=== PATIENT | female | born 1995 | race Caucasian/White ===

== ENCOUNTER 2017-09-18 12:28 | Emergency (ER) | payer OTHER ==
--- NOTE | 2017-09-18 13:54 | RAD REPORT ---
EXAM DESCRIPTION: RAD -Hand Left 3 View - 09/18/2017 1:46 pm CLINICAL HISTORY: Left hand pain status post injury FINDINGS: No fracture or dislocation is seen.
--- NOTE | 2017-09-18 14:05 | ER ---
Nurse's Notes [facility] Name: Tara Anderson Age: 22 yrs Sex: Female : 1995 Arrival Date: 09/18/2017 Time: 12:31 Bed 23 Private MD: Diagnosis: Contusion of left index finger without damage to nail Presentation: 09/18 13:21 Presenting complaint: Patient states: pt was cleaning an upper cabinet and reach back tl3 into a ceiling fan, injuring her left hand, primarily the index finger. C/O pain and numbness to entire hand, cap refill less than 2 seconds. Transition of care: patient was not received from another setting of care. Onset of symptoms was September 18, 2017. Care prior to arrival: Medication(s) given: Tylenol, 325 mg. 13:21 Method Of Arrival: Ambulatory tl3 13:21 Acuity: DEANDRE 3 tl3 Triage Assessment: 13:25 General: Appears in no apparent distress. comfortable, slender, well groomed, well tl3 developed, well nourished, Behavior is calm, cooperative, appropriate for age. Pain: Complains of pain in left hand, index finger. EENT: No signs and/or symptoms were reported regarding the EENT system. Neuro: Level of Consciousness is awake, alert, obeys commands, Oriented to person, place, time, situation, Appropriate for age. Cardiovascular: Heart tones S1 S2 present Capillary refill < 3 seconds in bilateral fingers. Respiratory: Airway is patent Trachea midline Respiratory effort is even, unlabored, Breath sounds are clear bilaterally. GI: No signs and/or symptoms were reported involving the gastrointestinal system. : No signs and/or symptoms were reported regarding the genitourinary system. Derm: No signs and/or symptoms reported regarding the dermatologic system. Musculoskeletal: Reports numbness in left hand. Injury Description: Bruise sustained to left index finger. 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 - Social history:: Smoking status: Patient/guardian denies using tobacco, never smoked. Screenin:33 Abuse screen: Denies threats or abuse. Nutritional screening: No deficits noted. tl3 Tuberculosis screening: No symptoms or risk factors identified. Fall Risk None identified. Assessment: 13:29 Reassessment: No changes from previously documented assessment. Patient is alert, tl3 oriented x 3, equal unlabored respirations, skin warm/dry/pink. Alvaro Butler at bedside for assessment. 13:39 Reassessment: xray at bedside. tl3 14:00 Reassessment: Patient appears in no apparent distress at this time. No changes from tl3 previously documented assessment. Patient and/or family updated on plan of care and expected duration. Pain level reassessed. Patient is alert, oriented x 3, equal unlabored respirations, skin warm/dry/pink. Vital Signs: 13:25 BP 110 / 77; Pulse 68; Resp 18; Pulse Ox 100% ; Weight 54.88 kg; Height 5 ft. 2 in. tl3 (157.48 cm); 14:26 BP 112 / 78; Pulse 64; Resp 16; Pulse Ox 100% on R/A; tl3 13:25 Body Mass Index 22.13 (54.88 kg, 157.48 cm) tl3 ED Course: 12:31 Patient arrived in ED. mr 13:19 Aamir Butler PA is PHCP. cp 13:19 Aamir Oliver MD is Attending Physician. cp 13:21 Claire Fam, YULIA is Primary Nurse. tl3 13:23 Triage completed. tl3 13:25 Arm band placed on right wrist. tl3 13:43 X-ray completed. Portable x-ray completed in exam room. Patient tolerated procedure sw well. 13:44 XRAY Hand LEFT 3 View In Process Unspecified. EDMS 14:00 No apparent distress. tl3 14:10 No provider procedures requiring assistance completed. Patient did not have IV access tl3 during this emergency room visit. finger splint placed on left index finger, finger wrapped in gauze, aluminum splint placed and wrapped with 2in ion bandage. 14:33 Patient has correct armband on for positive identification. Bed in low position. Adult tl3 w/ patient. Administered Medications: 13:56 Drug: Ibuprofen 600 mg Route: PO; tl3 14:33 Follow up: Response: No adverse reaction; Pain is decreased tl3 Outcome: 14:05 Discharge ordered by . cp 14:32 Patient left the ED. tl3 14:34 Discharged to home ambulatory. tl3 14:34 Condition: good 14:34 Discharge instructions given to patient, Instructed on discharge instructions, follow up and referral plans. medication usage, Demonstrated understanding of instructions, follow-up care, medications, splint care, Prescriptions given X 1. Signatures: Dispatcher [employer] Hillary Minor mr Thomas, Aamir Zaldivar, Claire Jones cp, RN RN tl3
--- NOTE | 2017-09-18 14:05 | EDPHYS ---
Physician Documentation [facility] Name: Tara Anderson Age: 22 yrs Sex: Female : 1995 Arrival Date: 09/18/2017 Time: 12:31 Bed 23 Private MD: RIANA Physician Aamir Oliver HPI: 09/18 13:30 This 22 yrs old Female presents to ER via Ambulatory with complaints of Hand cp Injury. 13:30 The patient or guardian reports a contusion, injury. The complaints affect the left cp index finger. 13:30 Context: The problem was sustained at home, resulted from direct blow by ceiling fan. cp 13:30 Onset: The symptoms/episode began/occurred today. Associated signs and symptoms: cp Pertinent negatives: cyanosis distally, decreased sensation distally. 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 - Social history:: Smoking status: Patient/guardian denies using tobacco, never smoked. ROS: 13:38 Constitutional: Negative for body aches, chills, fever. cp 13:38 Eyes: Negative for injury, pain, redness, and discharge. cp 13:38 ENT: Negative for drainage from ear(s), ear pain, sore throat, difficulty swallowing, difficulty handling secretions. 13:38 Respiratory: Negative for cough, shortness of breath, wheezing. 13:38 Abdomen/GI: Negative for abdominal pain, nausea, vomiting, and diarrhea. 13:38 MS/extremity: Positive for contusion, ecchymosis, swelling, tenderness, of the left index finger. 13:38 Skin: Negative for cellulitis, rash. 13:38 Neuro: Positive for tingling, Negative for numbness. 13:38 All other systems are negative. Exam: 13:42 Constitutional: The patient appears in no acute distress, alert, awake, well developed, cp well nourished. 13:42 Head/Face: Normocephalic, atraumatic. cp 13:42 Eyes: Periorbital structures: appear normal, Conjunctiva: normal, no exudate, no injection, Lids and lashes: appear normal, bilaterally. 13:42 ENT: External ear(s): are unremarkable, Nose: is normal, Mouth: is normal, Posterior pharynx: is normal, airway is patent. 13:42 Chest/axilla: Inspection: normal. 13:42 Cardiovascular: Rate: normal, Rhythm: regular. 13:42 Respiratory: the patient does not display signs of respiratory distress, Respirations: normal, no use of accessory muscles, no retractions, no splinting, no tachypnea. 13:42 Musculoskeletal/extremity: Extremities: grossly normal except: noted in the middle and proximal phalanx left index finger: ecchymosis, swelling, tenderness, There is no evidence of decreased ROM, Perfusion: the extremity is normally perfused throughout, decreased sensation. 13:42 Skin: cellulitis, is not appreciated, no rash present. Vital Signs: 13:25 BP 110 / 77; Pulse 68; Resp 18; Pulse Ox 100% ; Weight 54.88 kg; Height 5 ft. 2 in. tl3 (157.48 cm); 14:26 BP 112 / 78; Pulse 64; Resp 16; Pulse Ox 100% on R/A; tl3 13:25 Body Mass Index 22.13 (54.88 kg, 157.48 cm) tl3 MDM: 13:19 Patient medically screened. 14:04 Data reviewed: vital signs, nurses notes, radiologic studies, plain films. 09/18 13:27 Order name: XRAY Hand LEFT 3 View; Complete Time: 13:57 09/18 13:57 Interpretation: Report reviewed. 09/18 14:00 Order name: Finger Splint; Complete Time: 14:01 cp Administered Medications: 13:56 Drug: Ibuprofen 600 mg Route: PO; tl3 14:33 Follow up: Response: No adverse reaction; Pain is decreased tl3 Disposition: 09/19 07:30 Co-signature as Attending Physician, Aamir Oliver MD I agree with the assessment and rosemary plan of care. Disposition: 09/18/17 14:05 Discharged to Home. Impression: Contusion of left index finger without damage to nail. - Condition is Stable. - Discharge Instructions: Contusion. - Prescriptions for Ibuprofen 600 mg Oral Tablet - take 1 tablet by ORAL route every 6 hours As needed take with food; 30 tablet. - Medication Reconciliation Form, Thank You Letter, Antibiotic Education, Prescription Opioid Use, Work release form form. - Follow up: Private Physician; When: 5 - 6 days; Reason: Recheck today's complaints. - Problem is new. - Symptoms have improved. Signatures: Dispatcher [employer] Aamir Ronquillo, Aamir Alcantara MD, cha, PA PA cp Lowrey, Tammy, RN RN tl3
[2017-09-18] MEDS ORDERED: IBUPROFEN 400 MG TAB ONE (14:13)
[2017-09-18] MEDS ORDERED: IBUPROFEN 200 MG TAB PO ONE (14:14)
== END 2017-09-18 14:32 | disposition home or self-care (01) ==
LOC: ER 12:28
DX: S60.022A Contusion of left index finger without damage to nail, initial encounter (principal); W22.8XXA Striking against or struck by other objects, initial encounter; Y93.9 Activity, unspecified; Y92.009 Unspecified place in unspecified non-institutional (private) residence as the place of occurrence of the external cause; Z88.8 Allergy status to other drugs, medicaments and biological substances
CPT/HCPCS: 99284

== ENCOUNTER 2018-02-12 20:08 | Emergency (ER) | payer BC, OTHER ==
[2018-02-12] MEDS ORDERED: NA CHLORIDE 0.9% 1,000 ML ONE (20:45)
[2018-02-12] MEDS ORDERED: MORPHINE 4 MG/ML SYR ONE (20:45)
[2018-02-12] MEDS ORDERED: ONDANSETRON 4 MG/2 ML VIAL ONE (20:45)
[2018-02-12 21:07] LABS: Absolute Lymphocytes (CBC) 2.7 K/uL (0.7-4.9); Absolute Monocytes 0.5 K/uL (0.1-1.3); Absolute Neutrophil 4.2 K/uL (1.8-8.0); Basophils % 0.4 % (0-1.3); Eosinophils % 1.5 % (0-4.4); Hematocrit 34.9 % (36.0-45.0); Lymphocytes % 36.2 % (15.3-44.8); MCH 28.1 pg (27.0-35.0); MCV 81.1 fL (80-100); MPV 9.4 fL (7.6-11.3); Monocytes % 6.1 % (3.3-12.3); RBC Red Blood Cell Count 4.31 M/uL (3.86-4.86)
[2018-02-12 21:27] LABS: ALT/SGPT 28 U/L (12-78); AST/SGOT 40 U/L (15-37); Albumin 3.8 g/dL (3.4-5.0); Alkaline Phosphatase 54 U/L (45-117); Amylase Level 47 U/L (25-115); BUN Blood Urea Nitrogen 8 mg/dL (7-18); Bicarbonate 24 mmol/L (21-32); Bilirubin Direct < 0.1 mg/dL (0-0.2); Bilirubin Total 0.3 mg/dL (0.2-1.0); Glucose Level 96 mg/dL (74-106); Lipase 95 U/L (73-393); Potassium 5.3 mmol/L (3.5-5.1); Protein, Total 7.4 g/dL (6.4-8.2); Sodium Level 140 mmol/L (136-145)
[2018-02-13 00:08] LABS: Urine Blood NEGATIVE (NEG); Urine Glucose NEGATIVE (NEG); Urine Protein NEGATIVE (NEG)
[2018-02-13 00:08] LABS: Urine Bacteria <20 /HPF (<20); Urine Culture Reflex Order NOT NEEDED; Urine RBC <5 /HPF (NONE SEEN)
--- NOTE | 2018-02-13 01:05 | EDPHYS ---
Physician Documentation [facility] Name: Tara Anderson Age: 22 yrs Sex: Female : 1995 Arrival Date: 02/12/2018 Time: 20:12 Bed 6 Private MD: ED Physician Domingo Marie HPI: 02/12 20:30 This 22 yrs old Female presents to ER via Wheelchair with complaints of cp Abdominal Pain, Nausea. 20:30 The patient presents with abdominal pain in the lower abdomen. Onset: The cp symptoms/episode began/occurred suddenly, 1 hour(s) ago. The symptoms do not radiate. Associated signs and symptoms: Pertinent negatives: chest pain, constipation, diarrhea, dysuria, fever, vomiting. The symptoms are described as constant. Severity of pain: in the emergency department the pain is unchanged despite home interventions. 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 - Social history:: Smoking status: Patient/guardian denies using tobacco. - Ebola Screening: : Patient negative for fever greater than or equal to 101.5 degrees Fahrenheit, and additional compatible Ebola Virus Disease symptoms Patient denies exposure to infectious person Patient denies travel to an Ebola-affected area in the 21 days before illness onset No symptoms or risks identified at this time. ROS: 20:35 Constitutional: Negative for body aches, chills, fever, poor PO intake. cp 20:35 Eyes: Negative for injury, pain, redness, and discharge. cp 20:35 ENT: Negative for drainage from ear(s), ear pain, sore throat, difficulty swallowing, difficulty handling secretions. 20:35 Cardiovascular: Negative for chest pain, edema, palpitations. 20:35 Respiratory: Negative for cough, shortness of breath, wheezing. 20:35 Abdomen/GI: Positive for abdominal pain, Negative for vomiting, diarrhea, constipation, anorexia, black/tarry stool, rectal bleeding. 20:35 Back: Negative for pain at rest, pain with movement, radiated pain. 20:35 : Negative for urinary symptoms. 20:35 Skin: Negative for cellulitis, rash. 20:35 Neuro: Negative for altered mental status, headache, weakness. 20:35 All other systems are negative. Exam: 20:40 Constitutional: The patient appears in no acute distress, alert, awake, non-toxic, well cp developed, well nourished. 20:40 Head/Face: Normocephalic, atraumatic. cp 20:40 Eyes: Periorbital structures: appear normal, Conjunctiva: normal, no exudate, no injection, Sclera: no appreciated abnormality, Lids and lashes: appear normal, bilaterally. 20:40 ENT: External ear(s): are unremarkable, Nose: is normal, Mouth: Lips: moist, Oral mucosa: moist, Posterior pharynx: is normal, airway is patent, no erythema, no exudate. 20:40 Neck: ROM/movement: is normal, is supple, without pain, no range of motions limitations, no nuchal rigidity. 20:40 Chest/axilla: Inspection: normal, Palpation: is normal, no crepitus, no tenderness. 20:40 Cardiovascular: Rate: normal, Rhythm: regular. 20:40 Respiratory: the patient does not display signs of respiratory distress, Respirations: normal, no use of accessory muscles, no retractions, no splinting, no tachypnea, labored breathing, is not present, Breath sounds: are clear throughout, no decreased breath sounds, no stridor, no wheezing. 20:40 Abdomen/GI: Inspection: abdomen appears normal, Bowel sounds: active, all quadrants, Palpation: soft, in all quadrants, severe abdominal tenderness, in the right lower quadrant and left lower quadrant, rebound tenderness, is not appreciated, voluntary guarding, is elicited in the right lower quadrant and left lower quadrant, involuntary guarding, is not appreciated. 20:40 Back: pain, is absent, ROM is normal. 20:40 Skin: cellulitis, is not appreciated, no rash present. 20:40 Neuro: Orientation: to person, place \T\ time. Mentation: lucid, able to follow commands, Cerebellar function: is grossly normal, Motor: moves all fours, strength is normal, Sensation: no obvious gross deficits. Vital Signs: 20:23 BP 130 / 74; Pulse 99; Resp 20; Temp 98.5; Pulse Ox 100% on R/A; Weight 54.43 kg (R); sr5 Height 5 ft. 1 in. (154.94 cm); Pain 10/10; 21:20 BP 96 / 59; Pulse 66; Resp 16 S; Pulse Ox 100% on R/A; jd3 22:00 BP 104 / 67; Pulse 54; Resp 14; Pulse Ox 100% ; bp 23:10 BP 94 / 58; Pulse 52; Resp 16 S; Pulse Ox 98% on R/A; jd3 23:50 BP 94 / 57; Pulse 53; Resp 14; Pulse Ox 98% ; bp 02/13 00:46 BP 80 / 43; Pulse 46; Resp 14; Pulse Ox 100% ; bp 00:58 BP 92 / 51; Pulse 47; Resp 14; Pulse Ox 100% ; bp 02/12 20:23 Body Mass Index 22.67 (54.43 kg, 154.94 cm) sr5 MDM: 02/12 20:18 Patient medically screened. cp 02/13 01:02 Data reviewed: vital signs, nurses notes, lab test result(s), radiologic studies, CT cp scan, ultrasound. 01:02 Counseling: I had a detailed discussion with the patient and/or guardian regarding: the cp historical points, exam findings, and any diagnostic results supporting the discharge/admit diagnosis, lab results, radiology results, the need for outpatient follow up, an OB/Gyne specialist, to return to the emergency department if symptoms worsen or persist or if there are any questions or concerns that arise at home. Response to treatment: the patient's symptoms have markedly improved after treatment. Special discussion: Based on the patient's Hx, exam, and Dx evaluation, there is no indication for emergent surgery or inpatient Tx. It is understood by the patient/guardian that if the Sx's persist or worsen they need to return immediately for re-evaluation. 02/12 20: Order name: Amylase, Serum; Complete Time: 22:01 cp 02/12 20: Order name: Basic Metabolic Panel; Complete Time: 22: cp 02/12 22: Interpretation: Normal except: K 5.3; CL 109; GFR 89. cp 02/12 20: Order name: CBC with Diff; Complete Time: 21:33 cp 02/12 21:33 Interpretation: Normal except: HCT 34.9; RDW 15.5. cp 02/12 20:27 Order name: Creatinine for Radiology; Complete Time: 21:33 cp 02/12 20:27 Order name: Hepatic Function; Complete Time: 22:01 cp 02/12 22:01 Interpretation: Normal except: AST 40; GLOB 3.6. cp 02/12 20:27 Order name: Lipase; Complete Time: 22:01 cp 02/12 20:27 Order name: Urine Microscopic Only; Complete Time: 00:24 cp 02/12 20:55 Order name: Test, Serum; Complete Time: 22:01 02/12 22:02 Interpretation: Reviewed. 02/12 21:06 Order name: CT Abd/Pelvis - W/Contrast 02/12 22:04 Order name: US Transvaginal Study (Probe) 02/12 22:18 Order name: Urine Dipstick--Ancillary (enter results); Complete Time: 00:24 mt 02/12 22:18 Order name: Urine --Ancillary (enter results); Complete Time: 00:24 mt 02/12 23:51 Order name: Potassium; Complete Time: 00:24 02/13 00:24 Interpretation: Within normal limits: K 3.7. 02/12 20:27 Order name: Urine Test (obtain specimen); Complete Time: 23:15 cp 02/12 20:27 Order name: IV Saline Lock; Complete Time: 20:51 cp 02/12 20:27 Order name: Labs collected and sent; Complete Time: 20:51 02/12 20:27 Order name: Urine Dipstick-Ancillary (obtain specimen); Complete Time: 23:15 02/13 00:50 Order name: Vital Signs: rechech to include blood pressure; Complete Time: 00:59 cp Administered Medications: 02/12 20:50 Drug: morphine 2 mg Route: IVP; Site: left antecubital; bp 21:43 Follow up: Response: Pain is decreased bp 20:51 Drug: NS 0.9% 1000 ml Route: IV; Rate: 1 bolus; Site: left antecubital; bp 22:00 Follow up: IV Status: Completed infusion; IV Intake: 1000ml bp 20:51 Drug: Zofran 4 mg Route: IVP; Site: left antecubital; bp 21:43 Follow up: Response: No adverse reaction; Nausea is decreased bp 22:30 Drug: NS 0.9% 1000 ml Route: IV; Rate: 125 ml/hr; Site: left antecubital; bp 02/13 01:14 Follow up: IV Status: Completed infusion; IV Intake: 375ml bp Disposition: 03:01 Co-signature as Attending Physician, Domingo Marie MD I agree with the assessment and tw4 plan of care. 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 Attestation: The patient's history, exam findings, diagnostics, and a summary of any interventions or procedures was reviewed in detail with Aamir MANRIQUEZ. Disposition: 02/13/18 01:04 Discharged to Home. Impression: Unspecified ovarian cysts. - Condition is Stable. - Discharge Instructions: Ovarian Cyst. - Prescriptions for Tylenol- Codeine #3 300-30 mg Oral Tablet - take 2 tablets by ORAL route every 6 hours As needed; 20 tablet. - Medication Reconciliation Form, Thank You Letter, Antibiotic Education, Prescription Opioid Use form. 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 - Problem is new. - Symptoms have improved. Signatures: Dispatcher [employer] EDMS Aamir Butler PA PA cp Resecker, Sam RN RN sr5 Kai Lind RN RN Domingo Miles MD MD tw4 Corrections: (The following items were deleted from the chart) 01:15 01:04 02/13/2018 01:04 Discharged to Home. Impression: Unspecified ovarian cysts. bp Condition is Stable. Forms are Medication Reconciliation Form, Thank You Letter, Antibiotic Education, Prescription Opioid Use. 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 Problem is new. Symptoms have improved. cp
--- NOTE | 2018-02-13 01:05 | ER ---
Nurse's Notes [facility] Name: Tara Anderson Age: 22 yrs Sex: Female : 1995 Arrival Date: 02/12/2018 Time: 20:12 Bed 6 Private MD: Diagnosis: Unspecified ovarian cysts Presentation: 02/12 20:21 Presenting complaint: Patient states: sudden severe lower midline abd pain, nausea. LMP sr5 2 weeks ago "spotty". Pt tearful/guarding. Transition of care: patient was not received from another setting of care. Onset of symptoms was February 12, 2018. Risk Assessment: Do you want to hurt yourself or someone else? Patient reports no desire to harm self or others. Initial Sepsis Screen: Does the patient meet any 2 criteria? No. Patient's initial sepsis screen is negative. Does the patient have a suspected source of infection? No. Patient's initial sepsis screen is negative. Care prior to arrival: None. 20:21 Method Of Arrival: Wheelchair sr5 20:21 Acuity: DEANDRE 3 sr5 Triage Assessment: 20:23 General: Appears uncomfortable, Behavior is crying. Pain: Complains of pain in sr5 suprapubic area, right lower quadrant and left lower quadrant Pain currently is 10 out of 10 on a pain scale. Quality of pain is described as crampy, pressure, sharp, Pain began suddenly. Neuro: No deficits noted. Cardiovascular: No deficits noted. Respiratory: No deficits noted. GI: Abdomen is flat, non-distended. :. 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 - Social history:: Smoking status: Patient/guardian denies using tobacco. - Ebola Screening: : Patient negative for fever greater than or equal to 101.5 degrees Fahrenheit, and additional compatible Ebola Virus Disease symptoms Patient denies exposure to infectious person Patient denies travel to an Ebola-affected area in the 21 days before illness onset No symptoms or risks identified at this time. Screenin:49 Abuse screen: Denies threats or abuse. Denies injuries from another. Nutritional bp screening: No deficits noted. Tuberculosis screening: No symptoms or risk factors identified. Fall Risk None identified. Assessment: 20:51 General: Appears distressed, uncomfortable, slender, Behavior is cooperative, agitated, bp anxious, crying. Pain: Complains of pain in abdomen. Neuro: Level of Consciousness is awake, alert, obeys commands, Oriented to person, place, time, situation, Appropriate for age. Cardiovascular: No deficits noted. Respiratory: Airway is patent Respiratory effort is even, unlabored, Respiratory pattern is regular, symmetrical. GI: Bowel sounds present X 4 quads. Abdomen is tender to palpation X 4 quads. : Reports vaginal bleeding that is spotty. EENT: No deficits noted. Derm: No deficits noted. Musculoskeletal: Circulation, motion, and sensation intact. Range of motion: intact in all extremities. 22:00 Reassessment: PO CONTRAST COMPLETED, CT NOTIFIED. U/S PENDING. PT EXPRESSES RELIEF OF bp S/S. 22:16 Reassessment: PT ASHLEY TO U/S WITH STATISTICS TUTOR. bp 23:49 Reassessment: PT RESTING QUIETLY, VS STABLE, RAD RESULTS PENDING. bp 02/13 00:30 Reassessment: PT RESTING QUIETLY, RESULTS PENDING, VS STABLE. bp 01:12 Reassessment: PT D/C HOME VIA W/C WITH FAMILY, DX WITH OVARIAN CYST, TO F/U WITH OB-LANDSCAPER HELPER.bp Vital Signs: 02/12 20:23 BP 130 / 74; Pulse 99; Resp 20; Temp 98.5; Pulse Ox 100% on R/A; Weight 54.43 kg (R); sr5 Height 5 ft. 1 in. (154.94 cm); Pain 10/10; 21:20 BP 96 / 59; Pulse 66; Resp 16 S; Pulse Ox 100% on R/A; jd3 22:00 BP 104 / 67; Pulse 54; Resp 14; Pulse Ox 100% ; bp 23:10 BP 94 / 58; Pulse 52; Resp 16 S; Pulse Ox 98% on R/A; jd3 23:50 BP 94 / 57; Pulse 53; Resp 14; Pulse Ox 98% ; bp 02/13 00:46 BP 80 / 43; Pulse 46; Resp 14; Pulse Ox 100% ; bp 00:58 BP 92 / 51; Pulse 47; Resp 14; Pulse Ox 100% ; bp 02/12 20:23 Body Mass Index 22.67 (54.43 kg, 154.94 cm) 5 ED Course: 02/12 20:12 Patient arrived in ED. al2 20:18 Aamir Butler PA is PHCP. cp 20:18 Domingo Marie MD is Attending Physician. cp 20:22 Triage completed. sr5 20:23 Kai Lind, YULIA is Primary Nurse. bp 20:23 Arm band placed on. sr5 20:48 Inserted saline lock: 20 gauge in left antecubital area, using aseptic technique. Blood bp collected. 20:49 Patient has correct armband on for positive identification. Placed in gown. Bed in low bp position. Call light in reach. Side rails up X2. Adult w/ patient. 21:29 Oral contrast given. jg6 22:06 Oral contrast reported to be complete. jg6 22:53 US Transvaginal Study (Probe) In Process Unspecified. EDMS 02/13 00:11 CT Abd/Pelvis - W/Contrast In Process Unspecified. EDMS 00:44 CT completed. Patient tolerated procedure well. Patient moved to CT via wheelchair. Patient moved back from CT. 01:13 No provider procedures requiring assistance completed. IV discontinued, intact, bp bleeding controlled, No redness/swelling at site. Pressure dressing applied. Administered Medications: 02/12 20:50 Drug: morphine 2 mg Route: IVP; Site: left antecubital; bp 21:43 Follow up: Response: Pain is decreased bp 20:51 Drug: NS 0.9% 1000 ml Route: IV; Rate: 1 bolus; Site: left antecubital; bp 22:00 Follow up: IV Status: Completed infusion; IV Intake: 1000ml bp 20:51 Drug: Zofran 4 mg Route: IVP; Site: left antecubital; bp 21:43 Follow up: Response: No adverse reaction; Nausea is decreased bp 22:30 Drug: NS 0.9% 1000 ml Route: IV; Rate: 125 ml/hr; Site: left antecubital; bp 02/13 01:14 Follow up: IV Status: Completed infusion; IV Intake: 375ml bp Intake: 02/12 22:00 IV: 1000ml; Total: 1000ml. bp 02/13 01:14 IV: 375ml; Total: 1375ml. bp Outcome: 01:04 Discharge ordered by MD. cp 01:13 Discharged to home via wheelchair, with family. bp 01:13 Condition: stable 01:13 Discharge instructions given to patient, Instructed on discharge instructions, follow up and referral plans. medication usage, Demonstrated understanding of instructions, follow-up care, medications, Prescriptions given X 1. 01:15 Patient left the ED. bp Signatures: Dispatcher [employer] EDMS Geoffrey Heck Corey, DECLAN PA cp Ahmet Julien RN RN sr5 Valdemar Brooks RN RN jd3 Kai Lind RN RN Abeba Miller Jessica jg6 Corrections: (The following items were deleted from the chart) 02/12 20:22 20:21 Acuity: DEANDRE 2 sr5 sr5
--- NOTE | 2018-02-13 08:00 | RAD REPORT ---
EXAM DESCRIPTION: US - Transvaginal Study Probe - 02/12/2018 10:53 pm CLINICAL HISTORY: lower abdomen pain COMPARISON: Abdomen Pelvis W Contrast dated 02/12/2018<Comparisons> FINDINGS: The uterus measures 8 x 5 x 6cm. A fibroid is not seen. The endometrium measures approxima tely 18 millimeters. A 3.9 x 2.4 x 4 centimeter cystic mass is present within the right ovary containing a septation. Bloo d flow is seen within the right ovarian parenchyma. The left ovary was not visualized. No significant free fluid is noted IMPRESSION: 3.9 centimeter complex right ovarian cyst likely is benign. Follow up ultrasound in a co uple months is recommended to assess stability/resolution
--- NOTE | 2018-02-13 08:36 | RAD REPORT ---
EXAM DESCRIPTION: CT - Abdomen Pelvis W Contrast - 02/13/2018 4:36 am CLINICAL HISTORY: Abdominal pain/lower abdominal pain with nausea COMPARISON: None TECHNIQUE: Computed axial tomography of the abdomen and pelvis was obtained. 100 cc Isovue-300 is ad ministered intravenously. Oral contrast was given. A preliminary report was generated by [facility] and reviewed prior to this dictation All CT scans are performed using dose optimization technique as appropriate and may include automated exposure control or mA/KV adjustment according to patient size. FINDINGS: The liver, spleen, pancreas, adrenals and kidneys appear unremarkable. The appendix is normal caliber. There is no evidence of diverticulitis A 4 centimeter complex cystic mass is present within right adnexae. Significant free fluid is not not ed IMPRESSION: 4 centimeter complex cystic mass within the right adnexal likely representing complex ovarian cyst. F ollowup ultrasound in a couple of months is recommended to assess stability/resolution
== END 2018-02-13 01:15 | disposition home or self-care (01) ==
LOC: ER 20:08
DX: N83.209 Unspecified ovarian cyst, unspecified side (principal); F41.9 Anxiety disorder, unspecified; Z88.8 Allergy status to other drugs, medicaments and biological substances
CPT/HCPCS: 36415; 74177; 76830; 80048; 80076; 81003; 81015; 81025; 82150; 83690; 84132; 84703; 85025; 96361; 96374; 96375; 99284; J2405; J7030; Q9967

== ENCOUNTER 2018-11-24 07:06 | Emergency (ER) | payer BC ==
--- NOTE | 2018-11-24 08:06 | ER ---
Nurse's Notes [facility] Name: Tara Anderson Age: 23 yrs Sex: Female : 1995 Arrival Date: 11/24/2018 Time: 07:22 Bed 17 Private MD: Diagnosis: Follicular disorder, unspecified Presentation: 11/24 07:34 Presenting complaint: Patient states: rash under right arms X 3 days, looks like a iw "popped pimple" but there was never a pimple there, tender to touch, rash was worse this morning. Transition of care: patient was not received from another setting of care. Onset of symptoms was November 21, 2018. Risk Assessment: Do you want to hurt yourself or someone else? Patient reports no desire to harm self or others. Initial Sepsis Screen: Does the patient meet any 2 criteria? No. Patient's initial sepsis screen is negative. Does the patient have a suspected source of infection? No. Patient's initial sepsis screen is negative. Care prior to arrival: None. 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 - Social history:: Smoking status: Patient uses tobacco products, smokes one-half pack cigarettes per day. - Ebola Screening: : Patient negative for fever greater than or equal to 101.5 degrees Fahrenheit, and additional compatible Ebola Virus Disease symptoms Patient denies exposure to infectious person Patient denies travel to an Ebola-affected area in the 21 days before illness onset No symptoms or risks identified at this time. Screenin:47 Abuse screen: Denies threats or abuse. Denies injuries from another. Nutritional sv screening: No deficits noted. Tuberculosis screening: No symptoms or risk factors identified. Fall Risk None identified. Assessment: 08:16 General: Appears in no apparent distress. uncomfortable, well developed, Behavior is sv calm, cooperative, appropriate for age. Pain: Complains of pain in right axilla Pain currently is 7 out of 10 on a pain scale. Neuro: Level of Consciousness is awake, alert, obeys commands, Oriented to person, place, time, situation, Moves all extremities. Full function Gait is steady. Respiratory: Respiratory effort is even, unlabored, Respiratory pattern is regular, symmetrical. Derm: Reports pain rash in armpit. Vital Signs: 07:36 BP 113 / 72; Pulse 64; Resp 16; Temp 97.9(TE); Pulse Ox 100% on R/A; Weight 58.06 kg; iw Height 5 ft. 2 in. (157.48 cm); Pain 7/10; 07:36 Body Mass Index 23.41 (58.06 kg, 157.48 cm) ED Course: 07:22 Patient arrived in ED. tw3 07:32 Carter Torres PA is PHCP. [facility] 07:32 Aamir Oliver MD is Attending Physician. [facility] 07:33 Sheela Payne, RN is Primary Nurse. iw 07:36 Triage completed. iw 07:37 Arm band placed on. iw 07:38 Sumaya Olmos RN is Primary Nurse. sv 07:47 Patient has correct armband on for positive identification. Bed in low position. Call sv light in reach. Door closed. Head of bed elevated. 07:57 Nurse Practitioner and/or Physician Broom Machine Operator to see patient. sv 08:15 No provider procedures requiring assistance completed. Patient did not have IV access sv during this emergency room visit. Administered Medications: No medications were administered Outcome: 08:06 Discharge ordered by . [facility] 08:16 Discharged to home ambulatory. sv 08:16 Condition: stable 08:16 Discharge instructions given to patient, Instructed on discharge instructions, follow up and referral plans. medication usage, wound care, Demonstrated understanding of instructions, follow-up care, medications, wound care, Prescriptions given X 1. 08:17 Patient left the ED. sv Signatures: Sumaya Olmos RN RN Carter Torres PA PA jmm Williams, Irene, RN RN Rachael Nelson tw3
--- NOTE | 2018-11-24 08:06 | EDPHYS ---
Physician Documentation [facility] Name: Tara Anderson Age: 23 yrs Sex: Female : 1995 Arrival Date: 11/24/2018 Time: 07:22 Bed 17 Private MD: ED Physician Aamir Oliver HPI: 11/24 08:00 This 23 yrs old Female presents to ER via Ambulatory with complaints of Rash. jmm 08:00 The patient's rash thought to be caused by an unknown cause. Onset: The jmm symptoms/episode began/occurred acutely, 1 day(s) ago. Associated signs and symptoms: Pertinent positives: Pain Pertinent negatives: fever, itching. This is a 23 year old female with a history of anxiety that presents to the ED with complaints of right axillary rash beginning yesterday. patient denies draining. Denies itchiness. Denies fever. . 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 - Social history:: Smoking status: Patient uses tobacco products, smokes one-half pack cigarettes per day. - Ebola Screening: : Patient negative for fever greater than or equal to 101.5 degrees Fahrenheit, and additional compatible Ebola Virus Disease symptoms Patient denies exposure to infectious person Patient denies travel to an Ebola-affected area in the 21 days before illness onset No symptoms or risks identified at this time. ROS: 08:00 Constitutional: Negative for fever, chills, and weight loss, Cardiovascular: Negative jmm for chest pain, palpitations, and edema, Respiratory: Negative for shortness of breath, cough, wheezing, and pleuritic chest pain. 08:00 Skin: Positive for pustules, rash. 08:00 All other systems are negative. Exam: 08:00 Head/Face: atraumatic. Eyes: EOMI, no conjunctival erythema appreciated ENT: Moist jmm Mucus Membranes Neck: Trachea midline, Supple Chest/axilla: Normal chest wall appearance and motion. Cardiovascular: Regular rate and rhythm. No edema appreciated Respiratory: Normal respirations, no respiratory distress appreciated Abdomen/GI: Non distended, soft Back: Normal ROM 08:00 Constitutional: The patient appears in no acute distress, alert, awake. 08:00 Skin: pustules noted to the right axilla, TTP, no surrounding indurations. No purulent drainage is appreciated. . 08:00 Neuro: Orientation: is normal, Mentation: is normal, Memory: is normal. 08:00 Psych: Behavior/mood is pleasant, cooperative. Vital Signs: 07:36 BP 113 / 72; Pulse 64; Resp 16; Temp 97.9(TE); Pulse Ox 100% on R/A; Weight 58.06 kg; iw Height 5 ft. 2 in. (157.48 cm); Pain 7/10; 07:36 Body Mass Index 23.41 (58.06 kg, 157.48 cm) iw MDM: 07:32 Patient medically screened. [facility] 08:04 Data reviewed: vital signs, nurses notes. Counseling: I had a detailed discussion with filiberto the patient and/or guardian regarding: the historical points, exam findings, and any diagnostic results supporting the discharge/admit diagnosis, the need for outpatient follow up, to return to the emergency department if symptoms worsen or persist or if there are any questions or concerns that arise at home. ED course: Patient is alert and non toxic in appearance. Patient is advised to follow up with her pcp for reevaluation in 1 to 2 days. patient is otherwise given strict return precautions. patient understood and agrees with the plan of care. . Administered Medications: No medications were administered Disposition: 11/24/18 08:06 Discharged to Home. Impression: Follicular disorder, unspecified. - Condition is Stable. - Discharge Instructions: Folliculitis. - Prescriptions for Bactroban 2 % Topical Ointment - Apply to affected area 1 application by TOPICAL route every 12 hours; 30 gram. - Work release form, Medication Reconciliation Form, Thank You Letter, Antibiotic Education, Prescription Opioid Use form. - Follow up: Private Physician; When: 2 - 3 days; Reason: Recheck today's complaints, Continuance of care, Re-evaluation by your physician. Signatures: Sumaya Olmos RN RN sv Anderson, Corey, MD MD cha Mickail, Joel, PA PA jmm Williams, Irene, RN RN iw Corrections: (The following items were deleted from the chart) 08:17 08:06 11/24/2018 08:06 Discharged to Home. Impression: Follicular disorder, sv unspecified. Condition is Stable. Forms are Medication Reconciliation Form, Thank You Letter, Antibiotic Education, Prescription Opioid Use. Follow up: Private Physician; When: 2 - 3 days; Reason: Recheck today's complaints, Continuance of care, Re-evaluation by your physician. filiberto
== END 2018-11-24 08:17 | disposition home or self-care (01) ==
LOC: ER 07:06
DX: L73.9 Follicular disorder, unspecified (principal); Z88.1 Allergy status to other antibiotic agents
CPT/HCPCS: 99282

== ENCOUNTER 2018-12-19 21:10 | Emergency (ER) | payer BC ==
--- NOTE | 2018-12-19 21:36 | ER ---
Nurse's Notes [facility] Name: Tara Anderson Age: 23 yrs Sex: Female : 1995 Arrival Date: 12/19/2018 Time: 21:19 Bed 3 Private MD: Diagnosis: Staphylococcal infection, unspecified site Presentation: 12/19 21:25 Presenting complaint: Patient states: rashes on armpit started 3 weeks ago. its getting rr5 itchy and burn feeling. 21:25 Transition of care: patient was not received from another setting of care. Onset of rr5 symptoms was November 2018. Risk Assessment: Do you want to hurt yourself or someone else? Patient reports no desire to harm self or others. Initial Sepsis Screen: Does the patient meet any 2 criteria? No. Patient's initial sepsis screen is negative. Does the patient have a suspected source of infection? No. Patient's initial sepsis screen is negative. Care prior to arrival: None. 21:25 Method Of Arrival: Ambulatory rr5 21:25 Acuity: DEANDRE 4 rr5 Triage Assessment: 21:25 General: Appears in no apparent distress. comfortable, Behavior is calm, cooperative, rr5 appropriate for age. 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 - Social history:: Smoking status: Patient uses tobacco products, smokes one-half pack cigarettes per day, Patient/guardian denies using alcohol, street drugs. - Ebola Screening: : Patient negative for fever greater than or equal to 101.5 degrees Fahrenheit, and additional compatible Ebola Virus Disease symptoms Patient denies exposure to infectious person Patient denies travel to an Ebola-affected area in the 21 days before illness onset. Screenin:25 Abuse screen: Denies threats or abuse. Denies injuries from another. Nutritional rr5 screening: No deficits noted. Tuberculosis screening: No symptoms or risk factors identified. Fall Risk None identified. Total Harding Fall Scale indicates No Risk (0-24 pts). Assessment: 21:25 General: Appears in no apparent distress. comfortable, Behavior is calm, cooperative, rr5 appropriate for age. 21:25 Pain: Denies pain. Neuro: Level of Consciousness is awake, alert, obeys commands, rr5 Oriented to person, place, time, situation, Appropriate for age. Cardiovascular: Capillary refill < 3 seconds Patient's skin is warm and dry. Respiratory: Airway is patent Respiratory effort is even, unlabored, Respiratory pattern is regular, symmetrical. GI: No signs and/or symptoms were reported involving the gastrointestinal system. : No signs and/or symptoms were reported regarding the genitourinary system. EENT: No signs and/or symptoms were reported regarding the EENT system. Derm: Rash noted that is itchy, red, raised, vesicular, on right and left armpit. Musculoskeletal: Capillary refill < 3 seconds, Range of motion: intact in all extremities. Vital Signs: 21:25 BP 115 / 86; Pulse 71; Resp 17; Temp 98.7; Pulse Ox 98% ; Weight 54.43 kg; Height 5 ft. rr5 2 in. (157.48 cm); Pain 0/10; 21:25 Body Mass Index 21.95 (54.43 kg, 157.48 cm) rr5 ED Course: 21:19 Patient arrived in ED. aa1 21:20 Aamir Butler PA is PHCP. cp 21:20 Chris Taylor MD is Attending Physician. cp 21:25 Patient has correct armband on for positive identification. Bed in low position. rr5 21:26 Arm band placed on right wrist. rr5 21:29 Justin Layton RN is Primary Nurse. rr5 21:31 Triage completed. rr5 21:50 No provider procedures requiring assistance completed. Patient did not have IV access rr5 during this emergency room visit. Administered Medications: No medications were administered Outcome: 21:33 Discharge ordered by MD. cp 21:45 Discharged to home ambulatory. rr5 21:45 Condition: stable 21:45 Discharge instructions given to patient, Instructed on discharge instructions, follow up and referral plans. medication usage, Demonstrated understanding of instructions, follow-up care, medications, Prescriptions given X 2. 21:53 Patient left the ED. rr5 Signatures: Sally Simons RN RN aa1 Aamir Butler PA PA cp Layton, Justin, RN RN rr5
--- NOTE | 2018-12-19 21:37 | EDPHYS ---
Physician Documentation [facility] Name: Tara Anderson Age: 23 yrs Sex: Female : 1995 Arrival Date: 12/19/2018 Time: 21:19 Bed 3 Private MD: ED Physician Chris Taylor HPI: 12/19 21:31 This 23 yrs old Female presents to ER via Ambulatory with complaints of Rash. cp 21:31 The rash is located on the right arm axilla and left arm axilla. Onset: The cp symptoms/episode began/occurred 3 week(s) ago. 21:31 Associated signs and symptoms: Pertinent negatives: fever. 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 - Social history:: Smoking status: Patient uses tobacco products, smokes one-half pack cigarettes per day, Patient/guardian denies using alcohol, street drugs. - Ebola Screening: : Patient negative for fever greater than or equal to 101.5 degrees Fahrenheit, and additional compatible Ebola Virus Disease symptoms Patient denies exposure to infectious person Patient denies travel to an Ebola-affected area in the 21 days before illness onset. ROS: 21:32 Eyes: Negative for injury, pain, redness, and discharge. cp 21:32 Constitutional: Negative for body aches, chills, fever, poor PO intake. 21:32 Cardiovascular: Negative for chest pain. cp 21:32 Respiratory: Negative for cough, wheezing. cp 21:32 Abdomen/GI: Negative for abdominal pain. 21:32 Skin: Positive for rash, of the right arm axilla and left arm axilla. 21:32 All other systems are negative. Exam: 21:32 Head/Face: Normocephalic, atraumatic. cp 21:32 Constitutional: The patient appears in no acute distress, alert, awake, comfortable, non-toxic, well developed, well nourished. 21:32 Skin: rash can be described as erythematous, papular, on the right arm axilla and left cp arm axilla. Vital Signs: 21:25 BP 115 / 86; Pulse 71; Resp 17; Temp 98.7; Pulse Ox 98% ; Weight 54.43 kg; Height 5 ft. rr5 2 in. (157.48 cm); Pain 0/10; 21:25 Body Mass Index 21.95 (54.43 kg, 157.48 cm) rr5 MDM: 21:20 Patient medically screened. cp 21:33 Differential diagnosis: impetigo, allergic reaction, cellulitis. cp 21:33 Data reviewed: vital signs, nurses notes, and as a result, I will discharge patient. cp Counseling: I had a detailed discussion with the patient and/or guardian regarding: the historical points, exam findings, and any diagnostic results supporting the discharge/admit diagnosis, to return to the emergency department if symptoms worsen or persist or if there are any questions or concerns that arise at home. Administered Medications: No medications were administered Disposition: 12/20 02:11 Co-signature as Attending Physician, Chris Taylor MD. [email or web address] Disposition: 12/19/18 21:33 Discharged to Home. Impression: Staphylococcal infection, unspecified site. - Condition is Stable. - Discharge Instructions: Staphylococcal Infection. - Prescriptions for Bactroban 2 % Topical Ointment - Apply to affected area 1 application by TOPICAL route every 12 hours; 30 gram. Clindamycin HCl 300 mg Oral Capsule - take 1 capsule by ORAL route every 6 hours for 10 days; 40 capsule. - Medication Reconciliation Form, Thank You Letter, Antibiotic Education, Prescription Opioid Use form. - Follow up: Private Physician; When: 1 week; Reason: Worsening of condition. - Problem is new. - Symptoms are unchanged. Signatures: Chris Taylor MD MD pkAamir Salinas PA PA cp Roque, Raymond RN RN rr5 Corrections: (The following items were deleted from the chart) 12/19 21:53 21:33 12/19/2018 21:33 Discharged to Home. Impression: Staphylococcal infection, rr5 unspecified site. Condition is Stable. Forms are Medication Reconciliation Form, Thank You Letter, Antibiotic Education, Prescription Opioid Use. Follow up: Private Physician; When: 1 week; Reason: Worsening of condition. Problem is new. Symptoms are unchanged. cp
== END 2018-12-19 21:53 | disposition home or self-care (01) ==
LOC: ER 21:10
DX: R21 Rash and other nonspecific skin eruption (principal); B95.8 Unspecified staphylococcus as the cause of diseases classified elsewhere; F41.9 Anxiety disorder, unspecified; F17.210 Nicotine dependence, cigarettes, uncomplicated; Z88.8 Allergy status to other drugs, medicaments and biological substances
CPT/HCPCS: 99282

== ENCOUNTER 2021-06-26 18:40 | Emergency (ER) | payer SELFPAY ==
[2021-06-26 21:41] LABS: SARS-COV-2 RT PCR POSITIVE (NEGATIVE)
--- NOTE | 2021-06-26 22:03 | EDPHYS ---
Physician Documentation [facility] Name: Tara Anderson Age: 26 yrs Sex: Female : 1995 Arrival Date: 06/26/2021 Time: 18:44 Bed Waiting Private MD: ED Physician Aamir Oliver HPI: 06/26 22:00 This 26 yrs old Female presents to ER via Ambulatory with complaints of Fever, Headache.pm1 22:00 The patient reports fever, not measured (subjective). Onset: The symptoms/episode pm1 began/occurred today. Modifying factors: there are no obvious modifying factors. Associated signs and symptoms: Pertinent positives: headache, body aches, muscle aches back and neck, Pertinent negatives: chest pain, cough, diarrhea, shortness of breath, sore throat, vomiting. Severity of symptoms: in the emergency department the symptoms are unchanged. The patient has not experienced similar symptoms in the past. The patient has not recently seen a physician. Historical: - Allergies: 19:24 Suprax; bb - Home Meds: 19:24 None [Active]; bb - Immunization history:: Client reports having NOT received the Covid vaccine. - Social history:: Smoking status: Patient denies any tobacco usage or history of. ROS: 22:00 Constitutional: Negative for fever, chills, and weight loss, Cardiovascular: Negative pm1 for chest pain, palpitations, and edema, Respiratory: Negative for shortness of breath, cough, wheezing, and pleuritic chest pain. 22:00 MS/Extremity: Negative for injury and deformity, Skin: Negative for injury, rash, and discoloration. 22:00 ENT: Negative for injury, pain, and discharge, Abdomen/GI: Negative for abdominal pain, nausea, vomiting, diarrhea, and constipation, Back: Negative for injury and pain. 22:00 Neck: Positive for neck pain. 22:00 Back: Positive for back pain. 22:00 Neuro: Positive for headache. 22:00 All other systems are negative. Exam: 22:00 Constitutional: This is a well developed, well nourished patient who is awake, alert, pm1 and in no acute distress. Head/Face: Normocephalic, atraumatic. 22:00 Skin: Warm, dry with normal turgor. Normal color with no rashes, no lesions, and no evidence of cellulitis. MS/ Extremity: Pulses equal, no cyanosis. Neurovascular intact. Full, normal range of motion. 22:00 Eyes: Exam is negative for acute changes, Extraocular movements: no acute changes, Conjunctiva: no acute changes, no injection, Sclera: no acute changes, icterus, is not appreciated. 22:00 ENT: Exam is negative for acute changes, Mouth: no acute changes, Lips: normal, moist, Oral mucosa: normal, pink and intact, moist, Posterior pharynx: no acute changes, Airway: no evidence of obstruction, Tonsils: are normal in appearance, erythema, is not appreciated, exudate, is not appreciated, peritonsillar mass, is not appreciated. 22:00 Neck: External neck: muscle spasm trapezius, C-spine: no acute changes, vertebral tenderness, is not appreciated, ROM/movement: no acute changes, Meningeal signs: are not present, Kernig's sign is negative, Brudzinski's sign is negative, nuchal rigidity, is not appreciated. 22:00 Cardiovascular: Exam negative for acute changes, Rate: normal, Rhythm: regular, Pulses: no pulse deficits are appreciated, Heart sounds: normal. 22:00 Respiratory: the patient does not display signs of respiratory distress, Respirations: normal, no acute changes, Breath sounds: are clear throughout. 22:00 Neuro: Exam negative for acute changes, Orientation: is normal, Mentation: is normal, Motor: is normal, moves all fours. Vital Signs: 19:23 BP 103 / 58; Pulse 116; Resp 16 S; Temp 100.9; Pulse Ox 100% on R/A; Weight 67.59 kg bb (R); Height 5 ft. 3 in. (160.02 cm); Pain 7/10; 19:23 Body Mass Index 26.39 (67.59 kg, 160.02 cm) bb MDM: 22:00 Data reviewed: vital signs. Data interpreted: Pulse oximetry: on room air is 100 %. pm1 Interpretation: normal. Counseling: I had a detailed discussion with the patient and/or guardian regarding: the historical points, exam findings, and any diagnostic results supporting the discharge/admit diagnosis, lab results, to return to the emergency department if symptoms worsen or persist or if there are any questions or concerns that arise at home. 22:00 ED course: Patient referred antipyretics but patient refused, said she would take it at pm1 home by herself. She would just like a work release form. 22:01 Patient medically screened. pm1 06/26 19:27 Order name: COVID-19/FLU A+B (Document "Date of Onset" if Symptomatic); Complete Time: misti 21:49 Administered Medications: No medications were administered Disposition: 06/27 12:18 Co-signature as Attending Physician, Amair Oliver MD I agree with the assessment and rosemary plan of care. Chart complete. Disposition Summary: 06/26/21 22:01 Discharge Ordered Location: Home pm1 Problem: new pm1 Symptoms: are unchanged pm1 Condition: Stable pm1 Diagnosis - Coronavirus infection, unspecified pm1 Followup: pm1 - With: Emergency Department - When: As needed - Reason: Worsening of condition Followup: pm1 - With: Private Physician - When: 2 - 3 days - Reason: Recheck today's complaints, Continuance of care, Re-evaluation by your physician Discharge Instructions: - Discharge Summary Sheet pm1 - COVID-19 pm1 - COVID-19 Frequently Asked Questions pm1 - 10 Things You Can Do to Manage Your COVID-19 Symptoms at Home - [facility] pm1 - COVID-19: Quarantine vs. Isolation - [facility] pm1 Forms: - Work release form pm1 - Medication Reconciliation Form pm1 - Thank You Letter pm1 - Antibiotic Education pm1 - Prescription Opioid Use pm1 Signatures: Dispatcher [employer] Aamir Ronquillo MD MD cha Ballard, Brenda, RN RN Edgar Leon [employer]OR [employer]OR [employer] pm1 Corrections: (The following items were deleted from the chart) 06/26 19:25 19:24 PMHx: Anxiety; misti chappell
--- NOTE | 2021-06-26 22:03 | ER ---
Nurse's Notes [facility] Name: Tara Anderson Age: 26 yrs Sex: Female : 1995 Arrival Date: 06/26/2021 Time: 18:44 Bed Waiting Private MD: Diagnosis: Coronavirus infection, unspecified Presentation: 06/26 19:23 Chief complaint: Patient states: she started having headache, fever, neck pain, bb photophobia, heart racing x 2 hours. Coronavirus screen: fever, Client presents with at least one sign or symptom that may indicate coronavirus-19. Standard/surgical mask placed on the client. Ebola Screen: No symptoms or risks identified at this time. Initial Sepsis Screen: Does the patient meet any 2 criteria? No. Patient's initial sepsis screen is negative. Does the patient have a suspected source of infection? No. Patient's initial sepsis screen is negative. Risk Assessment: Do you want to hurt yourself or someone else? Patient reports no desire to harm self or others. Onset of symptoms was June 26, 2021. 19:23 Method Of Arrival: Ambulatory bb 19:23 Acuity: DEANDRE 3 bb Triage Assessment: 19:24 General: Appears in no apparent distress. uncomfortable, Behavior is calm, cooperative. bb Pain: Complains of pain in head Pain currently is 7 out of 10 on a pain scale. Pain began suddenly, Also complains of photophobia. Neuro: Level of Consciousness is awake, alert, obeys commands, Oriented to person, place, time, situation. Cardiovascular: Capillary refill < 3 seconds Patient's skin is warm and dry. Respiratory: Respiratory effort is even, unlabored, Respiratory pattern is regular. Derm: Skin is pink, warm \T\ dry. Musculoskeletal: Circulation, motion, and sensation intact. Historical: - Allergies: 19:24 Suprax; bb - Home Meds: 19:24 None [Active]; bb - Immunization history:: Client reports having NOT received the Covid vaccine. - Social history:: Smoking status: Patient denies any tobacco usage or history of. Vital Signs: 19:23 BP 103 / 58; Pulse 116; Resp 16 S; Temp 100.9; Pulse Ox 100% on R/A; Weight 67.59 kg bb (R); Height 5 ft. 3 in. (160.02 cm); Pain 7/10; 19:23 Body Mass Index 26.39 (67.59 kg, 160.02 cm) misti ED Course: 18:44 Patient arrived in ED. mr 19:24 Triage completed. bb 19:27 Arm band placed on Patient placed in waiting room, Patient notified of wait time. Labs bb ordered per protocol. Family accompanied patient. 22:02 Edgar Harper NP is PHCP. pm1 22:03 Aamir Oliver MD is Attending Physician. pm1 Administered Medications: No medications were administered Outcome: 22:01 Discharge ordered by . pm1 22:13 Patient left the ED. pm1 Signatures: Yuliya Vazquez CubaAracelis RN RN bb Edgar Harper NP [employer]GETABLE CLASSER pm1 Corrections: (The following items were deleted from the chart) 19:25 19:24 PMHx: Anxiety; misti chappell
[2021-06-26 22:54] VITALS: BP 103/58; TEMP 100.9; O2SAT 100
== END 2021-06-26 22:13 | disposition home or self-care (01) ==
LOC: ER 18:40
DX: U07.1 COVID-19 (principal)
CPT/HCPCS: 0240U; 99282

== ENCOUNTER 2025-04-02 07:12 | Emergency (ER) | payer SELFPAY ==
--- OUTSIDE RECORDS SUMMARY | 2025-04-02 07:16 | XMS REPORT | Continuity of Care Document ---
Author Name Unknown Address [address] [facility] [place] [address] Organization [facility] [place] Address [address] 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 Name Role Phone Manjula Joe Primary Care Physician [phone] [facility] Attending Clinician Unavailable NOELLE GONZALES Attending Clinician Unavailable [facility] Admitting Clinician Unavailable NOELLE GONZALES Admitting Clinician Unavailable Allergies, Adverse Reactions, Alerts Allergy Name Allergy Type Status Severity Reaction(s) Onset Date Inactive Date Treating Clinician Comments Source Suprax Propensi ty to adverse reaction to drug Active 02-10 00:00: 00 Kurtis Ghosh Cefixime Propensi ty to adverse reaction s to drug Active Rash 08-05 00:00: 00 [facility] ent Social History Social Habit Start Date Stop Date Quantity Comments Source Sexual orientation 2024-10-06 07:38:37 Heterosexual (finding) [facility] Gender identity 2024-10-06 07:38:37 Identifies as female gender (finding) [facility] ASSERTION Not [facility] Alcoholic beverage intake 2025-02-04 00:00:00 2025-02-04 00:00:00 Current drinker of alcohol (finding) [facility] Sex 2024-10-06 07:36:21 2024-10-06 07:36:21 Female (finding) [facility] Tobacco use and exposure 2024-10-06 00:00:00 2024-10-06 00:00:00 Smokeless tobacco non-user [facility] Alcohol Comment 2024-10-06 00:00:00 2024-10-06 00:00:00 soically [facility] Smoking Status Start Date Stop Date Source Never smoked tobacco [facility] Medications Ordered Medication Name Filled Medication Name Start Date Stop Date Current Medication? Ordering Clinician Indication Dosage Frequency Signature (SIG) Comments Components Source doxycycline monohydrate 100 mg tablet 02-10 00:00: 00 Yes 1mg Kurtis Ghosh TAKE ONE (1) CAPSULE(S) BY MOUTH TWICE A DAY WITH FOOD. WAIT AT LEAST TWO HOURS BEFORE LYING DOWN. 10-09 00:00: 00 Yes Kurtis Ghosh APPLY TO AFFECTED AREA TWO OR THREE TIMES A DAY FOR 7 DAYS. 10-06 00:00: 00 Yes Kurtis Ghosh TAKE ONE (1) TABLET(S) BY MOUTH EVERY TWELVE HOURS FOR 10 DAYS. 10-06 00:00: 00 Yes Kurtis Ghosh Take 1 tablet by mouth daily. 06-20 00:00: 00 Yes Kurtis Ghosh TAKE DIRECTED. 06-20 00:00: 00 05-03 00:00 :00 No 4 Kurtis Ghosh TAKE 1 CAPSULE TWICE DAILY. 06-20 00:00: 00 05-03 00:00 :00 No 500 Kurtis Ghosh Take 1 tablet by mouth 2 times a day. Do not consume alcohol while taking this product. 02-12 00:00: 00 Yes Kurtis Emmanuel Augie Immunizations Ordered Immunization Name Filled Immunization Name Date Status Comments Source Tdap Tdap 2023-04-22 00:00:00 Completed Kurtis Emmanuel Augie Vital Signs Vital Name Observation Time Observation Value Comments S connor Body height 2025-02-04 13:30:00 160 cm [facility] Body weight 2025-02-04 13:30:00 70.308 kg [facility] BMI 2025-02-04 13:30:00 27.46 kg/m2 [facility] Body height 2024-10-06 09:54:00 160 cm [facility] Body weight 2024-10-06 09:54:00 70.308 kg [facility] BMI 2024-10-06 09:54:00 27.46 kg/m2 [facility] Height Measured 2024-02-11 16:25:00 62.00 inches Kurtis F Augie Body Temperature 2024-02-11 16:25:00 98.20 degrees Kurtis F Augie Heart Rate 2024-02-11 16:25:00 64.00 /min Tamy en F Augie Respiratory Rate 2024-02-11 16:25:00 19.00 /min Kurtis F Augie BP Systolic 2024-02-11 16:25:00 120 mm[Hg] Step hen F Augie BP Diastolic 2024-02-11 16:25:00 79 mm[Hg] Judd phen F Augie Weight Measured 2024-02-11 16:25:00 156.00 pounds Kurtis F Augie BP Systolic 2023-04-25 10:13:00 107 mm[Hg] Step hen F Augie BP Diastolic 2023-04-25 10:13:00 73 mm[Hg] Judd phen F Augie Weight Measured 2023-04-25 10:13:00 153.60 pounds Kurtis F Augie Height Measured 2023-04-25 10:13:00 62.00 inches Kurtis F Augie Body Temperature 2023-04-25 10:13:00 97.50 degrees Kurtis F Augie Heart Rate 2023-04-25 10:13:00 66.00 /min Tamy en F Augie Respiratory Rate 2023-04-25 10:13:00 Kurtis F Augie BP Systolic 2023-04-22 10:49:00 118 mm[Hg] Step hen F Augie BP Diastolic 2023-04-22 10:49:00 75 mm[Hg] Judd phen F Augie Weight Measured 2023-04-22 10:49:00 154.80 pounds Kurtis F Augie Height Measured 2023-04-22 10:49:00 62.00 inches Kurtis F Augie Body Temperature 2023-04-22 10:49:00 98.30 degrees Kurtis F Augie Heart Rate 2023-04-22 10:49:00 92.00 /min Tamy en F Augie Respiratory Rate 2023-04-22 10:49:00 Kurtis F Augie BP Systolic 2022-06-20 16:26:00 103 mm[Hg] Step hen F Augie BP Diastolic 2022-06-20 16:26:00 64 mm[Hg] Judd phen F Augie Weight Measured 2022-06-20 16:26:00 151.00 pounds Kurtis Ghosh Height Measured 2022-06-20 16:26:00 62.00 inches Kurtis Ghosh Body Temperature 2022-06-20 16:26:00 97.30 degrees Kurtis Ghosh Heart Rate 2022-06-20 16:26:00 77.00 /min Tamy Ghosh Respiratory Rate 2022-06-20 16:26:00 25.00 /min Kurtis Ghosh Procedures Procedure Date / Time Performed Performing Clinicia n Source RAPID HIV - STAT LAB Routine 2025-02-04 14:15:00 [facility] APTIMA GC [URINE] Urine Urine Routine 2025-02-04 14:15:00 RPR -STAT LAB Routine 2025-02-04 14:15:[address] [URINE] Urine Urine Routine 2025-02-04 14:15:[address] [URINE] 2024-10-06 10:00:00 APTIMA GC [URINE] 2024-10-06 10:00:00 HEPATITIS C VIRUS 2024-10-06 10:00:00 RAPID HIV - NS STAT LAB 2024-10-06 09:58:00 Adarsh Frazier [facility] RPR - NS STAT LAB 2024-10-06 09:58:00 Adarsh Frazier [facility] Plan of Care Planned Activity Planned Date Details Comments Source Encounters Start Date/Time End Date/Time Encounter Type Admission Type Attending [facility] Care Department Encounter ID Source 2025-02-04 10:33:55 2025-02-04 14:28:13 Office Visit ALBA YANG [facility] [id number] [facility] ent 2024-10-06 07:49:17 2024-10-06 14:09:24 Office Visit NOELLE GONZALES [facility] [id number] [facility] ent 2024-02-11 16:24:48 2024-02-11 16:24:48 Outpatient [facility] [id number] Kurtis Ghosh 2024-02-11 00:00:00 2024-02-11 00:00:00 Outpatient Visit [facility] [id number] Kurtis Ghosh 2023-04-25 10:09:05 2023-04-25 10:09:05 Outpatient [facility] [id number] Kurtis Ghosh 2023-04-22 10:44:01 2023-04-22 10:44:01 Outpatient [facility] [id number] Kurtis Ghosh 2023-04-22 00:00:00 2023-04-22 00:00:00 Outpatient Visit [facility] [id number] Kurtis Ghosh 2022-06-20 00:00:00 2022-06-20 00:00:00 Outpatient Visit [facility] [id number] Kurtis Ghosh Results Test Description Test Time Test Comments Results Result Co mments Source RPR -STAT [id number] 10:43:00* Test Item Value Reference Range Interpretation Comme [facility] RPR - SS STAT LAB (test code = 79375-8) NONREACTIVE NONREACTIVE ? This test was performed by ? ? ?[facility]. ? [address] [place] [address] ? CLIA # [id number] ? HEPATITIS PANEL, [id number] 01:54:13* Test Item Value Reference Range Interpretation Comme [facility] HEPATITIS A IgM (test code = 67618) NON-REACTIVE NON-REACTIVE HEPATITIS B CORE IgM (test code = 4644) NON-REACTIVE NON-REACTIVE HEPATITIS B SURF AG (test code = 2739) NON-REACTIVE NON-REACTIVE HEPATITIS C ANTIBODY (test code = 4675) NON-REACTIVE NON-REACTIVE INTERPRETATION HEPATITIS A: (test code = 2552) (NOTE) Hepatitis A serology shows no evidence of acute hepatitis A. INTERPRETATION HEPATITIS B: (test code = 80997) (NOTE) Hepatitis B serology shows no evidence of acute hepatitis B andno indication of exposure to hepatitis B virus in the previous mohamud eight months. INTERPRETATION HEPATITIS C: (test code = 83736) (NOTE) Hepatitis C serology shows no evidence of exposure to hepatitisC virus at this time. It can take up to 12 months after exposure tothe hepatitis C virus for antibodies to become detectable in the blood in certain patients. RPR REFLEX TO T. PALLIDUM - [id number] 00:57:20* Test Item Value Reference Range Interpretation Comme nts RPR (test code = 28820) NON-REACTIVE NON-REACTIVE RPR TITER (test code = 3500) NOT INDIC. TITER NOT INDIC. CT/NG, NAAT, [id number] 20:12:56* Test Item Value Reference Range Interpretation Comme nts CHLAMYDIA, NAAT, URINE (test code = 20877) NEGATIVE NEGATIVE Testing is perfo rmed with Dinah ANTHONY 6800/8800 systems usingreal-time polymerase chain reaction (PCR) method. A negative result does not exclude low level infection, specimensampling error, or collection error. GONORRHEA, NAAT, URINE (test code = 60634) NEGATIVE NEGATIVE Testing is perfo rmed with Dinah ANTHONY 6800/8800 systems usingreal-time polymerase chain reaction (PCR) method. A negative result does not exclude low level infection, specimensampling error, or collection error. UNLESS OTHERWISE INDICATED, ALL TESTING PERFORMED AT [facility] [address] [place] [address] DIGITAL ART DIRECTOR: NAZIA ARREOLA M.D. CLIA NUMBER [id number] [facility] [place]. [id number] TRICHOMONAS, NAAT, [id number] 20:10:20* Test Item Value Reference Range Interpretation Comme nts TRICHOMONAS, NAAT, URINE (test code = 66273) NEGATIVE NEGATIVE Testing is perfo rmed with Dinah ANTHONY 6800/8800 method usingreal-time polymerase chain reaction (PCR) method. A negative result does not exclude low level infection, specimensampling error, or collection error. MUMPS IgG AND [id number] 23:42:25* Test Item Value Reference Range Interpretation Comme nts MUMPS VIRUS IgG (test code = 86534) 65.0 AU/mL INTERPRETIVE INF ORMATION: Mumps Ab, IgG by KARL 8.9 AU/mL or less .... Negative - No significant level of detectable IgG mumps virus antibody 9.0-10.9 AU/mL ....... Equivocal - Repeat testing in 10-14 days may be helpful 11.0 AU/mL or greater: Positive - IgG antibody to mumps virus detected, which may indicate a current or past exposure/ immunization to mumps virus. The best evidence for current infection is a significant change on two appropriately timed specimens, where both tests are done in the same laboratory at the same time. TESTING PERFORMED AT [facility], [address] [address] [place] [id number] CLIA NO. [id number] MUMPS VIRUS IgM (test code = 4587) 0.61 IV <=0.79 INTERPRETIVE INFORMATION: Mumps Virus Antibody, IgM 0.79 IV or less: Negative - No significant level of detectable IgM antibody to mumps virus. 0.80 - 1.20 IV: Equivocal - Borderline levels of IgM antibody to mumps virus. Repeat testing in 10-14 days may be helpful. 1.21 IV or greater: Positive - Presence of IgM antibody to mumps virus detected, which may indicate a current or recent infection. However, low levels of IgM antibody may occasionally persist for more than 12 months post-infection or immunization. TESTING PERFORMED AT [facility] [address] [place], [place] [address] [place] [id number] CLIA NO. [id number] MUMPS IgG AND [id number] 00:00:00* Test Item Value Reference Range Interpretation Comme nts MUMPS VIRUS IgG (test code = 07295) 65.0 AU/mL MUMPS VIRUS IgM (test code = 4587) 0.61 IV Kurtis F AustinMUMPS IgG AND [id number] 00:00:00* Test Item Value Reference Range Interpretation Comme nts MUMPS VIRUS IgG (test code = 33115) 65.0 AU/mL MUMPS VIRUS IgM (test code = 4587) 0.61 IV Kurtis F AustinMUMPS IgG AND [id number] 00:00:00* Test Item Value Reference Range Interpretation Comme nts MUMPS VIRUS IgG (test code = 04009) 65.0 AU/mL MUMPS VIRUS IgM (test code = 4587) 0.61 IV Kurtis GhoshVARICELLA ZOSTER [id number] 14:38:49* Test Item Value Reference Range Interpretation Comme [facility] VARICELLA ZOSTER IgG (test code = 20634) 277 INDEX SEE BELOW INTERPRETATI ON VZV IgG NEGATIVE . . . . . . . . . . . . INDEX <135 EQUIVOCAL. . . . . . . . . . . . INDEX 135-164 NOTE: CONSIDER RETESTING IN A CLINICALLY SUITABLE PERIOD OF TIME, NO SOONER THAN 1-2 WEEKS. POSITIVE . . . . . . . . . . . . INDEX >=165 UNLESS OTHERWISE INDICATED, ALL TESTING PERFORMED AT [facility] [address] [place] [address] DIGITAL ART DIRECTOR: NAZIA ARREOLA M.D. [place] NUMBER [id number] [facility]. [id number] RUBEOLA AB, [id number] 14:38:49* Test Item Value Reference Range Interpretation Comme [facility] RUBEOLA AB, IgG (test code = 98837) 159.0 AU/ML SEE BELOW INTERPRETATION U NITS RANGE ----- ----- NEGATIVE AU/ML <13.5 EQUIVOCAL AU/ML 13.5-16.4 NOTE: CONSIDER RETESTING IN A CLINICALLY SUITABLE PERIOD OF TIME, NO SOONER THAN 1-2 WEEKS. POSITIVE AU/ML >=16.5 HEPATITIS B SURFACE [id number] 04:38:46* Test Item Value Reference Range Interpretation Comme nts HEPATITIS B SURFACE AB (test code = 2737) NON-REACTIVE NON-REACTIVE RUBELLA ANTIBODY [id number] 04:38:46* Test Item Value Reference Range Interpretation Comme [facility] RUBELLA ANTIBODY SCREEN (test code = 4600) 209 IU/ML SEE BELOW RUBELLA IgG INTERP (test code = 22410) REACTIVE REACTIVE INTERPRETATI ON UNITS RANGE NON-REACTIVE/NON-IMMUNE IU/ML <10 REACTIVE/IMMUNE IU/ML >=10 HEPATITIS B SURFACE [id number] 00:00:00* Test Item Value Reference Range Interpretation Comme nts HEPATITIS B SURFACE AB (test code = 2737) NON-REACTIVE Kurtis F AustinRUBEOLA IgG [id number] 00:00:00* Test Item Value Reference Range Interpretation Comme nts RUBEOLA AB, IgG (test code = 98767) 159.0 AU/ML Kurtis F AustinRUBELLA ANTIBODY [id number] 00:00:00* Test Item Value Reference Range Interpretation Comme nts RUBELLA ANTIBODY SCREEN (kathleen t code = 4600) 209 IU/ML RUBELLA IgG INTERP (test cod e = 21473) REACTIVE Kurtis F AustinVARICELLA ZOSTER [id number] 00:00:00* Test Item Value Reference Range Interpretation Comme nts VARICELLA ZOSTER IgG (test c ode = 11787) 277 INDEX Kurtis Benitez AustinHEPATITIS B SURFACE [id number] 00:00:00* Test Item Value Reference Range Interpretation Comme nts HEPATITIS B SURFACE AB (test code = 2737) NON-REACTIVE Kurtis F AustinRUBEOLA IgG [id number] 00:00:00* Test Item Value Reference Range Interpretation Comme nts RUBEOLA AB, IgG (test code = 37528) 159.0 AU/ML Kurtis F AustinRUBELLA ANTIBODY [id number] 00:00:00* Test Item Value Reference Range Interpretation Comme nts RUBELLA ANTIBODY SCREEN (kathleen t code = 4600) 209 IU/ML RUBELLA IgG INTERP (test cod e = 46095) REACTIVE Kurtis F AustinVARICELLA ZOSTER [id number] 00:00:00* Test Item Value Reference Range Interpretation Comme nts VARICELLA ZOSTER IgG (test c ode = 56371) 277 INDEX Kurtis F AustinHEPATITIS B SURFACE [id number] 00:00:00* Test Item Value Reference Range Interpretation Comme nts HEPATITIS B SURFACE AB (test code = 2737) NON-REACTIVE Kurtis F AustinRUBEOLA IgG [id number] 00:00:00* Test Item Value Reference Range Interpretation Comme nts RUBEOLA AB, IgG (test code = 78025) 159.0 AU/ML Kurtis F AustinRUBELLA ANTIBODY [id number] 00:00:00* Test Item Value Reference Range Interpretation Comme nts RUBELLA ANTIBODY SCREEN (kathleen t code = 4600) 209 IU/ML RUBELLA IgG INTERP (test cod e = 45289) REACTIVE Kurtis GhoshVARICELLA ZOSTER [id number] 00:00:00* Test Item Value Reference Range Interpretation Comme nts VARICELLA ZOSTER IgG (test c ode = 52577) 277 INDEX Kurtis Ghosh Notes Triggered an [employer] Scoring questionQuestion 02/04/2025 1:36 PM CDT - Filed by Alba Yang CMADiagnosis Date Comment SourceObjective:Other results pendingAssessment:Plan:Scheduled Orders Date/Time Note Provider Source 2025-02-04 13:37:50 Images from the original note were not included. [address]2342 If You Think You Have an STI Diagnosing and treating a sexually transmitted infection (STI) early is important. This limits the problems it can cause and helps prevent its spread to others. An STI is also known as a sexually transmitted disease (STD). Any sexual contact with the penis, vagina, anus, or mouth can spread a sexually transmitted infection (STI). STIs may not cause any symptoms but still get transmitted. If you think you may be at risk for an STI, get tested and treated right away. Ask your partner to get tested, too. Then don't have sex until you?ve finished treatment and your healthcare provider says it?s OK. Get tested right away if you think you have an STI. Common STI symptoms Be alert to any changes in your body and your partner's body. Symptoms of an STI may appear in or near the vagina, penis, rectum, mouth, or throat. They may include: ? Abnormal discharge ? Lumps, bumps, or rashes ? Sores that may be painful, itchy, or painless ? Burning feeling or pain when you pee ? Pain in the pelvis, belly (abdomen), or rectum ? Bleeding or abnormal discharge from the rectum ? Pain during sex ? Painful periods ? Testicular pain Diagnosing STIs Your healthcare provider will take a health history and examine you. You'll be asked about your sex habits, such as sexual partners, condom use, and types of sex (vaginal, anal, oral) you have. You may also be asked about other risky behaviors, like drug use or past STIs. Give honest answers. Your provider will then check your body for signs of STIs. You may also need 1 or more of these tests: ? Swabs may be taken from the vagina, penis, mouth, or rectum. Sometimes you can collect the swab yourself. If you would be more comfortable doing that, ask your provider. The samples are then tested for STIs like chlamydia, gonorrhea, and trichomonas. ? Fluid may be swabbed from open sores. ? Urine samples may be taken. They're checked for bacteria or parasites that cause STIs, such as chlamydia, gonorrhea, and trichomonas. ? Blood samples may be taken. They're checked for viruses or bacteria that cause STIs, such as such as HIV, hepatitis, and syphilis. ? For women, cells from the cervix are checked for signs of cancer and the genital wart virus (HPV or human papillomavirus infection). This is called a Pap test. It is often now done along with HPV testing. If cell changes are found, or a high-risk type of HPV is found, a magnifying scope may be used to take a closer look (colposcopy). ? A Pap test may be done on the anus. This is to check for HPV-linked cancer or precancer changes. The provider gently swabs cells from the lining of the anus. This sample is then sent to a lab to be checked under a microscope. If there are any abnormal signs, you may need more testing. Follow your treatment plan Treatment depends on the type of STI you have. Common treatments include antibiotics. These may be pills, liquids, or shots (injections). Creams and gels can be put on sores or warts caused by certain STIs. Follow the tips below: ? Get new treatment for each new STI. ? Don?t use old medicine, even for the same STI. Use medicines as directed. ? Don?t share medicine unless instructed to do so by your healthcare provider or clinic. ? Take treatment for as long as your provider advises. If any side effects appear, contact your provider. Ask them what to do about it. ? Prevent future STIs by having safe sex practices. ? Don't have sex until you and your partner have completed treatment. Talk to your partner If you have an STI, it?s your duty to tell all your recent sex partners so they can be tested and treated. This is one important way to prevent the disease from being spread. Telling a partner that you have an STI can be hard. You may be embarrassed, angry, or afraid. It?s often unclear who had the STI first. So try not to place blame. Your healthcare provider may have some advice on how to start. If you do not feel comfortable telling your sex partner(s) about an STI, there are ways to inform your sex partner(s) anonymously. Ask your healthcare provider how to do this. Prevent future problems Even after you?ve been treated, you can still be infected again. This is a common problem. It can happen if a partner passes the STI back to you. To prevent this, any partners you have must be tested. They may also need treatment. After treatment, go to any scheduled follow-up visits. Then prevent future problems by practicing safer sex. Limit your number of partners. And always use a latex condom. Remember that HIV is also an STI. If you have one type of STI, you can get others, including HIV. Ask your healthcare provider if you should take medicine to prevent getting HIV. This can be taken before the risk of exposure (PrEP or pre-exposure prophylaxis). Or it can be taken within 72 hours after unsafe sex (PEP or post-exposure prophylaxis). Last Reviewed Date: 2023 00:00:00 ? [id number] [employer]. All rights reserved. This information is not intended as a substitute for professional medical care. Always follow your healthcare professional's instructions. [facility] 2025-02-04 13:37:48 Images from the original note were not included. 13793 Understanding STIs When it comes to sex, nothing is risk-free. Any sexual contact with the penis, vagina, anus, or mouth can spread a sexually transmitted infection (STI). These include chlamydia, gonorrhea, herpes, HIV, and genital warts. The only sure way to prevent STIs is not having sex (abstinence). But there are ways to make sex safer. Use a latex condom each time you have sex. And choose your partner wisely. Use condoms for safer sex If you have sex, latex condoms provide the best protection against STIs. Latex condoms stop the exchange of body fluids that carry STIs. They also limit contact with affected skin. Be aware that a condom doesn?t cover all skin. So affected skin that isn't covered can still transfer disease. But you?re safer with a condom than without one. Use a condom even if you use other control. control methods such as the pill or IUD help prevent , but they don't protect against STIs. Choose the right condom Condoms made of latex prevent disease best. If you?re allergic to latex, use polyurethane condoms instead. Male condoms fit over the penis. Female condoms line the vagina. Before buying a condom, read the label to be sure it prevents disease. Some novelty condoms don?t. The right lubricant helps Buy lubricated condoms or use lubricant. This provides greater comfort and reduces the risk for condom breakage. Use only water-based lubricants. Don?t use oil, lotion, or petroleum jelly. They can weaken the condom, causing breakage. Also, you may want to choose lubricants without nonoxynol-9. This spermicide may cause irritation. It can raise the risk for certain STIs, including HIV. Use condoms correctly For condoms to work, they must be used the right way. Keep these tips in mind: ? Use a new latex condom each time you have sex. Slip the condom on the penis before any contact is made. ? When ready to withdraw, hold the rim of the condom as the penis pulls out. This prevents the condom from slipping off. ? Check the expiration date before using a condom. ? Don?t store condoms in places that can get hot, such as a car or a wallet that's carried in a back pocket. Get to know your partner Safer sex is a process. It means getting to know your partner and making informed choices. Ask each other how many partners you've had in the past, and how many you have now. Find out if either of you has HIV or any other STIs. If you decide to have sex, use a condom each time. Don?t stop using condoms unless you?re sure neither of you has other partners. And unless you?ve both been tested to confirm you don?t have HIV or other STIs. Then stay disease-free by having sex only with each other (monogamy). If you think you have been exposed to any STI, ask your healthcare provider about testing and treatments if needed. Keep your cool Don?t let alcohol or drugs cloud your judgment. They could lead you to have sex with someone you wouldn?t have chosen if you were sober. Or you might forget to use a condom. If you do plan to have sex, keep a latex condom with you. Don?t wait until you?re in the heat of passion to try to find one. Consider abstinence The only way to be sure you won?t get an STI is to not have sex. Abstinence is a choice that many people make at some point in their life. Maybe you want to wait until you're sure you?re ready before you have sex. Maybe you?d like a break from the responsibilities of sex for a while. Or maybe you just want to know your partner better before taking the next step. Abstinence is a choice you can make now to protect your future. Last Reviewed Date: 2023 00:00:00 ? 5603-3160 The [employer]. All rights reserved. This information is not intended as a substitute for professional medical care. Always follow your healthcare professional's instructions. [facility] 2025-02-04 13:37:41 Images from the original note were not included. Safer Sex: Care Instructions Overview Safer sex is a way to reduce your risk of getting a sexually transmitted infection (STI). It can also help prevent . Several products can help you practice safer sex and reduce your chance of STIs. One of the best is a condom. There are internal and external condoms. You can use a special rubber sheet (dental dam) for protection during oral sex. Disposable gloves can keep your hands from touching blood, semen, or other body fluids that can carry infections. Remember that control methods such as diaphragms, IUDs, foams, and control pills do not stop you from getting STIs. Follow-up care is a waite part of your treatment and safety. Be sure to make and go to all appointments, and call your doctor if you are having problems. It's also a good idea to know your test results and keep a list of the medicines you take. How can you care for yourself at home? Think about getting vaccinated to help prevent hepatitis A, hepatitis B, and human papillomavirus (HPV). They can be spread through sex. Use a condom every time you have sex. Use an external condom, which goes on the penis. Or use an internal condom, which goes into the vagina or anus. Make sure you use the right size external condom. A condom that's too small can break easily. A condom that's too big can slip off during sex. Use a new condom each time you have sex. Be careful not to poke a hole in the condom when you open the wrapper. Don't use an internal condom and an external condom at the same time. Never use petroleum jelly (such as Vaseline), grease, hand lotion, baby oil, or anything with oil in it. These products can make holes in the condom. After intercourse, hold the edge of the condom as you remove it. This will help keep semen from spilling out of the condom. Do not have sex with anyone who has symptoms of an STI, such as sores on the genitals or mouth. Do not drink a lot of alcohol or use drugs before sex. Limit your sex partners. Sex with one partner who has sex only with you can reduce your risk of getting an STI. Don't share sex toys. But if you do share them, use a condom and clean the sex toys between each use. Talk to any partners before you have sex. Talk about what you feel comfortable with and whether you have any boundaries with sex. And find out if your partner or partners may be at risk for any STI. Keep in mind that a person may be able to spread an STI even if they do not have symptoms. You and any partners may want to get tested for STIs. Where can you learn more? Please go to [email or web address] and enter the 4-digit code shown below - or - if you have an [employer] account for electronic access to your health record, please go to [email or web address] and enter the 4-digit code shown below in the Domino search box on your [employer] welcome screen. Enter B608 in the search box to learn more about "Safer Sex: Care Instructions." Available in Iraqi only. Current as of: October 03, 2022 Content Version: 13.9 ? Reble. Care instructions adapted under license by [employer]. If you have questions about a medical condition or this instruction, always ask your healthcare professional. [employer] disclaims any warranty or liability for your use of this information. Learning About Taking Medicine to Prevent HIV Infections If you're at risk of being infected with HIV, talk to your doctor about pre-exposure prophylaxis (PrEP). When taken as directed, this medicine can help prevent you from getting HIV. While taking PrEP, you'll need to see your doctor and get regular HIV tests. If you're concerned about the cost of the medicine, there are programs that can help. Why is it used? Use PrEP to protect against HIV. It almost always protects you from getting HIV through sex. It reduces your risk of getting HIV from injecting drugs. Take PrEP if you're trying to get with someone who has HIV. It can help prevent you from getting HIV. This will protect you and your baby. How do you take PrEP? PrEP may be taken as a daily pill. It may also be given as a long-acting shot. It's important to stay on schedule when taking PrEP. If you skip a pill or miss a shot appointment, PrEP doesn't work as well to block the virus. Follow-up care is a waite part of your treatment and safety. Be sure to make and go to all appointments, and call your doctor if you are having problems. It's also a good idea to know your test results and keep a list of the medicines you take. Where can you learn more? Please go to [email or web address] and enter the 4-digit code shown below - or - if you have an [employer] account for electronic access to your health record, please go to [email or web address] and enter the 4-digit code shown below in the Health Library search box on your [employer] welcome screen. Enter I152 in the search box to learn more about "Learning About Taking Medicine to Prevent HIV Infections." Available in Iraqi only. Current as of: November 27, 2022 Content Version: 13.9 ? Reble. Care instructions adapted under license by [employer]. If you have questions about a medical condition or this instruction, always ask your healthcare professional. [employer] disclaims any warranty or liability for your use of this information. Please feel free to call/ text the PrEP team if needed: PrEP AUDIT MGR: Verito Ellison ([place]) --------- Faroese PrEP Navigator: Geraldine Florian ([facility]) --------- Faroese PrEP Navigator: Viri Casper ([place]) PrEP Navigator: Shyanne Landin ([facility]) Follow-up with all other acute, chronic, and co-morbid issues with your primary care provider, specialist, or an urgent care provider. Below is a list of community health clinics/organizations the offer additional healthcare services if needed. [facility] ([facility]) Locations [address] [address] Services: Adult Medicine; Well Women Exam; HPV screening, Control, IUD Insertion, Mammogram Referrals, Colon Cancer Screening [address] [facility] [address] [place] [address] Services: Well Women Exam; HPV screening, Control, IUD Insertion, Mammogram Referrals, Colon Cancer Screening [facility] [address] [place] [address] Service: Adult Medicine, Behavorial Health, Dental Endocrinology, HIV/STD Screening & Treatment, LGBTQ Services, Pediatric Pharmacy, WAX PATTERN ASSEMBLER, Immunizations, Vision [facility] [address] [place] [address] Services: HIV Management [facility] [address] [place] [address] Services: Well Women Exam; HPV screening, Control, IUD Insertion, Mammogram Referrals, Colon Cancer Screening [facility] [address] [place] [address] Services: Well Women Exam; HPV screening, Control, IUD Insertion, Mammogram Referrals, Colon Cancer Screening [facility] [address] [place] [address] Services: Non-emergent medical problems - respiratory infections, allergies, urinary tract infections, muscle & joint pain, minor injuries. Management of Chronic Health Problems:Diabetes, Hypertension, Asthma, COPD. Preventative Health Services - Pap test, Mammograms, Cholesterol Screening, and Periodic Childhood Immunizations [facility] [address] [place] [address] Services: Adult Primary Care; Well Women's Care; Addiction Services, Case Management and care Coordination, Podiatry, HIV Prevention, Adult and Pediatric Mental Healthcare [facility] [address] [place] [address] Services: Primary Care; Women's Health Services; Behavorial Health; X-Ray, Lab, Vision, Dental, Pharmacy, Specialty Care: Cardiology, Dermatology, Internal Medicine, Neurology, Immunizations, Pediatrics, Geriatrics [facility] [address] [place] [address] Services: Women Health; Adult, Pediatric, Dental, Pharmacy, WIC, Maternity, Vaccines, HIV & Hepatitis C Care, [facility] [address] [place] [address] Services: Behavorial Health, Dentistry, Family Medicine, Laboratory, Pediatrics, and Care, Women's Health, Telemedicine, Housing Support [place] [id number] [place] [address] Services: Dentistry, Dental Implants, Preventative Services, HIV Speciality Care, Well Woman Care, Diabetes Care, Pediatrics, Vision, Podiatry, Behavorial health, Clinical Trials, Hepatitis Treatment, Radiology Services [facility] 2025-02-04 11:53:11 [facility] 2025-02-04 11:53:11 Alba Yang CMA - 02/04/2025 1:38 PM CDT Subjective: Tara Anderson is 29 year old female here today for STD testing only. Tara states no STD symptoms. MONKEYPOX VACCINE SCREENING Patient meets the following criteria for monkeypox vaccination : None 2. If patient meets criteria for monkeypox vaccination, patient was offered the monkepox vaccine : N/A 3. If patient was offered the vaccine, did the patient accept the monkeypox vaccine : N/A 4. If pt accepted the monkeypox vaccine, did you offer the A. Meningococcal vaccine : N/A. Accepted? N/A B. Hepatitis A vaccine : N/A. Accepted? N/A 5. If patient declined the Monkey pox vaccine, the reason stated was : N/A 6. If patient declined the Hepatitis vaccine, the reason stated was : N/A 7. If patient declined the Meningococcal vaccine, the reason stated was : N/A Legend: [facility] Std Risk Assessment 1. Have you experienced any signs/symptoms of syphilis and/or Gonorrhea and Chlamydia? Genital Sore No Rash on feet, hands, and body No Vaginal discharge No Swelling to the neck, under the arms, and/or groin area No 2. Are you a person who has come into contact with STI's like HIV, Syphilis, Gonorrhea, Chlamydia? No 3. Are you ? No 4. Male Clients Do you have sex with male? Not Applicable Do you have sex with female? Not Applicable Do you have sex with both male and female? Not Applicable 5. Are you currently homeless, meaning you don't have a fixed place (house, apt, room) to stay for more than 14 days? No 6. Did someone from the Health Department contact you to come into the clinic because you have a positive test for syphilis? No 7. Are you a female between the ages of 15 and 44 years? Yes 8. Have you been incarcerated during the past 12 months? No 9. Have you had sex with a person you met on any of the following: Website; Phone Dominic; Adult Bookstore? No 10. During the past 12 months, have you had sex with someone who injects substances such as drugs, steroids, hormones or tattoo ink under their skin or into their veins using needles? No 11. Are you returning to the clinic to receive additional bicillin injections for syphilis? No STD Medical History Chlamydia Ht 5' 3" (1.6 m) | Wt 155 lb (70.3 kg) | LMP 01/27/2025 (Approximate) | BMI 27.46 kg/m? Physical Exam: deferred as patient is asymptomatic and here only for screening. 1. Potential exposure to STD (Primary) - APTIMA GC (ORAL) Oral Swab Routine - APTIMA CT (ORAL) Oral Swab Routine - RPR -STAT LAB Routine - APTIMA GC [URINE] Urine Urine Routine - APTIMA CT [URINE] Urine Urine Routine 2. Counseling on health promotion and disease prevention -Patient given both verbal and written information/education. -Pt left without results/Reviewed current labs results with pt; client [facility] of pending STD results and [facility] -Sex Partner Referral unnecessary at this time. -Instructed patient to abstain from sex for 10 days or until all STD test results available and counseling provided. Will notify patient if results are abnormal. -Male condoms given today. declined -Patient education: 100% condom use with all sexual activity -Emergency Care instructions given. -PrEP Risk Assessment Score If >1 notify PrEP medical device sales representative -RTC in 3-6 months for STD screening [facility] Due Date Last Done Comments Anxiety Screening 1994 HPV Screening 1994 Pap + HPV 1994 Relationship Safety Screening/Counseling 2009 Hypertension Screening (#1) 2012 Cervical Cancer Screening 2015 Pap Smear 2015 Mgd-HNORW-05 ( season) 2024 024 Alcohol and Drug Screen 06/17/2024 Depression Annual Screen 06/17/2024 Imm-Influenza (#1) 2025 Tobacco Screening 10/06/2025 02/04/2025 Imm-DTaP/Tdap/Td (7 - Td or Tdap) 04/22/2033 04/22/2023, 03/05/2006, 02/24/1996, Additional history exists Imm-Hepatitis B Completed 01/04/1995, 12/1994, 1994 HIV Screening Completed 10/06/2024 Hepatitis C Screening Completed 10/06/2024 Cervical Ablation/Cold-Knife Conization Discontinued Cervical Cryotherapy Discontinued Colposcopy Discontinued Endometrial Biopsy Discontinued Excision/Leep Discontinued HPV Genotyping Discontinued Vaginal Pap Discontinued Vulvoscopy Discontinued [id number] 11:53:11 Diagnosis Potential exposure to STD - Primary Other specified personal history presenting hazards to health Counseling on health promotion and disease prevention Other specified counseling [id number] 10:55:06 [id number] Control Choices We understand gender is a spectrum. We may use gendered terms to talk about anatomy and health risk. Please use this information in a way that works best for you and your provider as you talk about your care. control keeps you from getting from sex. There are many types of control. Some work better than others. New types are tested all the time. Your healthcare provider can help you decide which type is best for you. But no matter which type you choose, you and your partner must use it the right way each time you have sex. Some of the most common types are below. Condom A male condom is a thin covering that fits over the penis. A female condom fits inside the vagina. A condom catches sperm that come out of the penis during sex. Spermicide Spermicide is a gel, foam, cream, tablet, or sponge. The sponge also works as a barrier with spermicide. It is put in the vagina before sex to kill sperm. Diaphragm and cervical cap A diaphragm is a round rubber cup that keeps sperm out of the uterus. A cervical cap is like it, but smaller. They also hold spermicide in place. Intrauterine device (IUD) An IUD is a small device put in the uterus by a healthcare provider. It stays in places for months or years as needed. The pill The control pill is taken daily. It has hormones that stop ovaries from releasing an egg each month. Other hormones Hormones that stop an egg from being released each month from an ovary can be given in other ways. These include injection, implant, patch, or vaginal ring. Other choices Other control methods include: ? Male sterilization (vasectomy). This surgery ties off or cuts the tubes (vas deferens) in the testes. It's done so sperm doesn't come out in the semen released from the penis. ? Female sterilization. This surgery blocks or cuts the fallopian tubes. It can be done through the belly (laparoscopy) to block the tubes or to remove part or all of them. It can also be done during a . ? Withdrawal method. This is when the penis is pulled out of the vagina before ejaculation. The failure rate for this method is high. It ranges from 22% to 28%. ? Fertility awareness method. This is when a person with ovaries and a uterus keeps track of their fertile days. They only have sex at times when they are not likely to get . This method is hard for people who have irregular periods. Emergency contraception (EC) Emergency contraception can help prevent after unprotected sex. Hormone pills are available over the counter to anyone. They are also known as morning after pills. A second type of EC is a copper IUD. This needs to be inserted by a trained healthcare provider. Either type of EC can be used up to 5 days after sex. But it should be used as soon as possible. The sooner it's used after unprotected sex, the more likely it is to work. EC will not work if you?re already . Things to consider Think about the below: ? Choose a type of control that is easy for you to use. ? Learn how to use your control the right way. Read the package. Follow your healthcare provider's instructions. ? Keep in mind that most types of control don't protect you from sexually transmitted infections (STIs). To protect against STIs, always use a latex condom. If you are allergic to latex, a non-latex condom may give you some protection. Last Reviewed Date: 2021 00:00:00 ? [id number] The [employer]. All rights reserved. This information is not intended as a substitute for professional medical care. Always follow your healthcare professional's instructions. [id number] 10:17:42 [facility] Department provides COVID-19 Vaccines at all health center locations and mobile sites throughout [place]. Schedule yours today at [phone] or visit [email or web address] . [id number] 08:55:31* [id number] 08:55:31* Attachments The following attachments cannot be sent through Care Everywhere. * Safer Sex (Iraqi) * Condoms: General Info (Iraqi) [id number] 08:55:31* Noelle Gonzales NP - 10/06/2024 10:13 AM CDT Chief Complaint Chief Complaint Patient presents with STI Screening Pt here for std screening with no symptoms Tara Anderson is a 29 year old female here today for STD testing. She denies having any symptoms. The patient denies a history of Syphilis and HIV. [facility] Std Risk Assessment Question 10/06/2024 9:57 AM CDT - Filed by Bc Blackmon CMA 1. Have you experienced any signs/symptoms of syphilis and/or Gonorrhea and Chlamydia? Genital Sore No Rash on feet, hands, and body No Vaginal discharge Swelling to the neck, under the arms, and/or groin area No 2. Are you a person who has come into contact with STI's like HIV, Syphilis, Gonorrhea, Chlamydia? Don't know 3. Are you ? No 4. Male Clients Do you have sex with male? Yes Do you have sex with female? No Do you have sex with both male and female? No 5. Are you currently homeless, meaning you don't have a fixed place (house, apt, room) to stay for more than 14 days? No 6. Did someone from the Health Department contact you to come into the clinic because you have a positive test for syphilis? No 7. Are you a female between the ages of 15 and 44 years? Yes 8. Have you been incarcerated during the past 12 months? No 9. Have you had sex with a person you met on any of the following: Website; Phone Dominic; Adult Bookstore? Yes 10. During the past 12 months, have you had sex with someone who injects substances such as drugs, steroids, hormones or tattoo ink under their skin or into their veins using needles? No 11. Are you returning to the clinic to receive additional bicillin injections for syphilis? No Intimate Partner Violence Screen: Being emotionally or physically abused? NO Being hit, slapped, kicked or physically hurt? NO Being forced to participate in unwanted sexual activities? NO Afraid of partner? NO Sexual Coercion in the past year: NO Reproductive Life Plan 1. Desires children: No 2. Number of children: 3 3. Contraceptive method of choice: none (Nexplanon ) Past Medical History: Diagnosis Date Chlamydia No past surgical history on file. Allergies Allergen Reactions Cefixime Rash Heterosexual female. LSE on 09/25/2024 without condom. 50% condom use. 2 sex partner(s) in the last 3 months 3 sex partner(s) in the last 12 months Sites of contact [mouth, vagina] Risk Factors Patient reports multiple sex partners Patient denies partner is male who has sex with males, anonymous sex partners, sex in risky venues, transgender sexual partner, exchange of sex for drugs/money, non-local sexual partners, IV drug use, IV drug use by sexual partner, crack use, meth use, nitrates ("poppers") during sex, other drug use during sex, erectile aid use and incarceration. Patient has or solicits sex at the following locations: N/A Patient was born in [facility] Patient reports no international travel in the last 60 days. Patient reports no previous antibiotic use in the last 60 days. Patient's sex at : Female HIV Patient consented to HIV testing Patient does not suspect 1? HIV Any Partners HIV pos? No Interested in PrEP: No SYMPTOMS: Patient AFFIRMS the following symptoms: None Patient DENIES the following symptoms: Vaginal discharge Vaginal odor vaginal itching vulvar itching urinary frequency hematuria dysuria genital lesions genital rash non-genital rash abdominal pain, flank pain, pelvic pain anorectal symptoms such as rectal discharge or pain oral symptoms ,sore throat, sores in mouth swollen lymph nodes hair loss (scalp or eyebrows) chills & fever hearing loss blurred vision chest pain headache nausea & vomiting depression and suicidal ideation Neurosyphilis Screening Tool Symptoms present: Change in or blurring of vision? NO Recent eye pain or redness? NO Spots or distrotion in vision? NO Double vision? NO Light hurts eyes? NO New weakness in arms, legs, or face? NO New headache unlike usual headaches? NO Stiff neck? NO New or recent hearing loss? NO New or recent ringing of ears? NO Signs present? Ocular injection? NO Photophobia? NO Nuchal rigidity? NO Facial palsy? NO OBJECTIVE: Ht 5' 3" (1.6 m) | Wt 155 lb (70.3 kg) | LMP 09/16/2024 (Approximate) | BMI 27.46 kg/m? | OB Status Having periods | Smoking Status Never | BSA 1.77 m? Physical Exam Constitutional: General: She is not in acute distress. Appearance: Normal appearance. She is well-developed and well-groomed. She is not ill-appearing, toxic-appearing or diaphoretic. HENT: Head: Normocephalic and atraumatic. Mouth/Throat: Lips: [place]. No lesions. Mouth: Mucous membranes are dry. Dentition: No gum lesions. Tongue: No lesions. Tongue does not deviate from midline. Palate: No mass and lesions. Pharynx: Oropharynx is clear. Uvula midline. No pharyngeal swelling, oropharyngeal exudate, posterior oropharyngeal erythema, uvula swelling or postnasal drip. Tonsils: No tonsillar exudate or tonsillar abscesses. Eyes: General: Lids are normal. Conjunctiva/sclera: Conjunctivae normal. Pulmonary: Effort: Pulmonary effort is normal. Abdominal: Palpations: Abdomen is soft. Tenderness: There is no abdominal tenderness. There is no right CVA tenderness, left CVA tenderness, guarding or rebound. Genitourinary: Genitalia: No external genitalia lesions, no verrucous papule(s), no fissure, no rash, no inflammation, no mass, no bartholin cyst, no vaginal ulcerations, no vesicles, no excoriation, no erythema, no tenderness and no abscess. Labia Minora: No lesions, no verrucous papule(s), no fissure, no rash, no inflammation, no mass, no bartholin cyst, no ulcerations, no vesicles, no excoriation, no erythema, no tenderness and no abscess. Labia Majora: No lesions, no verrucous papule(s), no fissure, no rash, no inflammation, no mass, no bartholin cyst, no ulcerations, no vesicles, no excoriation, no eyrthema, no tenderness and no abscess. Surrounding Skin: No lesions, no verrucous papule(s), no fissure, no rash, no inflammation, no mass, no bartholin cyst, no ulcerations, no vesicles, no excoriation, no erythema, no tenderness and no abscess. Urethra: Normal. Vagina: Normal. No vaginal discharge. Cervix: Normal. Internal Exam General: Bimanual exam deferred. Rectum: Normal. Musculoskeletal:Cervical back: Full passive range of motion without pain. Lymphadenopathy: Head: Right side of head: No submental, submandibular, tonsillar, preauricular, posterior auricular or occipital adenopathy. Left side of head: No submental, submandibular, tonsillar, preauricular, posterior auricular or occipital adenopathy. Cervical: No cervical adenopathy. Right cervical: No superficial, deep or posterior cervical adenopathy. Left cervical: No superficial, deep or posterior cervical adenopathy. Upper Body: Right upper body: No supraclavicular, axillary or epitrochlear adenopathy. Left upper body: No supraclavicular, axillary or epitrochlear adenopathy. Lower Body: No right inguinal adenopathy. No left inguinal adenopathy. Skin: General: Skin is warm and dry. Capillary Refill: Capillary refill takes less than 2 seconds. Findings: No rash. Neurological: General: No focal deficit present. Mental Status: She is alert and oriented to person, place, and time. Coordination: Coordination is intact. Gait: Gait is intact. Psychiatric: Attention and Perception: Attention and perception normal. Mood and Affect: Mood and affect normal. Speech: Speech normal. Behavior: Behavior normal. Behavior is cooperative. Thought Content: Thought content normal. Cognition and Memory: Cognition and memory normal. Judgment: Judgment normal. Results for orders placed or performed in visit on 10/06/24 RAPID HIV - STAT LAB Collection Time: 10/06/24 9:58 AM Result Value Ref Range RAPID HIV - ST STAT LAB NONREACTIVE NONREACTIVE RPR -STAT LAB Collection Time: 10/06/24 9:58 AM Result Value Ref Range RPR - SS STAT LAB NONREACTIVE NONREACTIVE ASSESSMENT/PLAN:Z20.2 Potential exposure to STD (primary encounter diagnosis) Plan : APTIMA CT [URINE] APTIMA GC [URINE] RAPID HIV - STAT LAB RPR -STAT LAB HEPATITIS C VIRUS Z71.89 Counseling on health promotion and disease preventionPlan : MALE CONDOM Safe sex practices discussed and advised. Discussed with patient daily multivitamin use, healthy diet & exercise, lifestyle modifications, tobacco/alcohol/narcotics avoidance/cessation, STD avoidance exposure & using barrier protection with all oral/vaginal/penile/rectal sex, staying current on immunizations, and reducing exposure to environmental and hazardous materials. Z30.09 Family planning education, guidance, and counselingFamily planning, health promotion and reproductive life plan counseling: Verbal and written counseling regarding role of females in prevention and contraceptive methods available to them discussed, encouraged to discuss plans,and or prevention with partner, also to use condoms with all sexual encounter to reduce the risk of sexually transmitted infections. Patient does not wish to have children within the next year. Patient will start using condoms as a contraceptive preventative method since implant is . Encouraged patient to [facility] for family planning services. Informed patient of the current syphilis outbreak in the [facility]. Based on the patients' high risk factors, patient qualifies for epi-treatment under the Syphilis Outbreak Response protocol d/t potential exposure. Recommended and offered epi-treatment. Patient does not consent to treatment. Discussed treatment instructions. Reviewed possible side effects and adverse reactions with patient. All questions and concerns addressed. Patient verbalized understanding. Advised patient: in the [facility] specialty clinic, only specialty clinic concerns will be addressed on this visit. Patient advised to follow up with all other acute, chronic, and co-morbid issues with his/her primary care doctor and/or specialists. If patient does not have health insurance, he/she may sign up with [facility] or seek out a [facility]. Upon request, a list of community health clinics/organizations is also given to patient. PLAN- Patient given verbal instruction and offered AVS. If they elected not to receive AVS, they were encouraged to sign up and check mychart for labs results & visit summary - Reviewed results with patient. Patient informed of pending STD results and how to review results in MyChart - Patient education: condom use, STDs, safe sex, HIV Prep - Instructed patient to abstain from sex until all STD tests results are available and counseling provided - Emergency Care instructions given - Sex partner referral: No - Return to clinic in 3-6 months or PRN for STD screening - Patient understands, agrees to plan of care, and all questions were answered - Vaccine screening delegated to [facility] After Visit Summary information reviewed. Discussed MyChart access with patient and advised that patient can review today's pending lab results with code given within 3-7 days Referral for appropriate services:No Tara Anderson understands and agrees with the plan of care. * Bc Blackmon CMA - 10/06/2024 9:58 AM CDT MONKEYPOX VACCINE SCREENING Patient meets the following criteria for monkeypox vaccination : None 2. If patient meets criteria for monkeypox vaccination, patient was offered the monkepox vaccine : N/A 3. If patient was offered the vaccine, did the patient accept the monkeypox vaccine : N/A 4. If pt accepted the monkeypox vaccine, did you offer the A. Meningococcal vaccine : N/A. Accepted? N/A B. Hepatitis A vaccine : N/A. Accepted? N/A 5. If patient declined the Monkey pox vaccine, the reason stated was : N/A 6. If patient declined the Hepatitis vaccine, the reason stated was : N/A 7. If patient declined the Meningococcal vaccine, the reason stated was : N/A [id number] 08:55:31Scheduled Orders Health Maintenance Due Date Last Done Comments Anxiety Screening 1995 HPV Screening 1995 Hepatitis C Screening 1994 Pap + HPV 1994 Tobacco Screening 1994 10/06/2024 Relationship Safety Screening/Counseling 2009 Hypertension Screening (#1) 2012 Imm-DTaP/Tdap/Td (1 - Tdap) 2013 Imm-Hepatitis B (1 of 3 - 19+ 3-dose series) 4 Cervical Cancer Screening 2015 Pap Smear 2015 Ryh-[id number]-54 (2023- season) 2024 Imm-Influenza (#1) 2024 Alcohol and Drug Screen 06/17/2024 Depression Annual Screen 06/17/2024 HIV Screening Completed 10/06/2024 Cervical Ablation/Cold-Knife Conization Discontinued Cervical Cryotherapy Discontinued Colposcopy Discontinued Endometrial Biopsy Discontinued Excision/Leep Discontinued HPV Genotyping Discontinued Vaginal Pap Discontinued Vulvoscopy Discontinued [id number] 08:55:31 Diagnosis Potential exposure to STD - Primary Other specified personal history presenting hazards to health Counseling on health promotion and disease prevention Other specified counseling Family planning education, guidance, and counseling Other general counseling and advice for contraceptive management [id number] 00:00:00 [facility]2023-11-06 00:00:00 [facility]2023-01-04 00:00:00 [facility]
[2025-04-02] MEDS ORDERED: NA CHLORIDE 0.9% 1,000 ML ONE (07:27)
[2025-04-02] MEDS ORDERED: ASPIRIN 81 MG CHEWABLE TABLET ONE (07:27)
[2025-04-02] MEDS ORDERED: KETOROLAC 30 MG/ML INJ ONE (07:27)
[2025-04-02 07:48] LABS: RBC Red Blood Cell Count 5.28 M/uL (3.86-4.86); White Blood Count 8.70 thou/uL (4.3-10.9)
[2025-04-02 07:49] LABS: Absolute Lymphocytes (CBC) 2.4 K/uL (0.7-4.9); Hematocrit 45.3 % (36.0-45.0); Hemoglobin 15.5 g/dL (12.0-15.0); MCH 29.3 pg (27.0-35.0); MCHC 34.2 g/dL (32.0-36.0); MCV 85.8 fL (80-100); MPV 9.3 fL (7.6-11.3); Nucleated RBC Absolute Count 0.0 (0-0); Nucleated Red Blood Cells % 0.0 % (0-0)
--- NOTE | 2025-04-02 08:02 | RAD REPORT ---
Procedure: Chest Pa And Lat (2 Views) HISTORY: Chest pain COMPARISON: 2014 FINDINGS: The lungs appear clear of acute infiltrate. No significant pleural effusion noted. The heart is normal size. IMPRESSION: No acute abnormality is displayed.
[2025-04-02 08:16] LABS: ALT/SGPT 90.0 U/L (13-56); Albumin 4.0 g/dL (3.4-5.0); Albumin/Globulin Ratio 1.0 (1.1-1.8); Alkaline Phosphatase 60.0 U/L (45-117); Anion Gap 12.2 mEq/L (5.0-15.0); BUN Blood Urea Nitrogen 10.0 mg/dL (7-18); Globulin 4.0 g/dL (2.3-3.5); Glucose Level 106.0 mg/dL (74-106); Troponin High Sensitivity 3.5 pg/mL (<58.9)
[2025-04-02 08:18] LABS: AST/SGOT 54.0 U/L (15-37); Potassium 4.2 mEq/L (3.5-5.1)
--- NOTE | 2025-04-02 08:20 | ER ---
Nurse's Notes [facility] Name: Tara Anderson Age: 29 yrs Sex: Female : 1995 Arrival Date: 04/02/2025 Time: 07:12 Bed 7 Private MD: Diagnosis: Chest pain, unspecified;Adjustment disorder with anxiety Presentation: 04/02 07:15 Chief complaint: Patient states: c/o L sided chest pain that radiates to L arm , kb4 started 20 m ago while driving. Coronavirus screen: At this time, unable to obtain information related to travel outside the [place] Ebola Screen: No symptoms or risks identified at this time. 07:15 Method Of Arrival: Ambulatory kb4 07:15 Initial Sepsis Screen: Does the patient meet any 2 criteria? Yes Does the patient have kb4 a suspected source of infection? No. Patient's initial sepsis screen is negative. Risk Assessment: Do you want to hurt yourself or someone else? Patient reports no desire to harm self or others. Onset of symptoms was April 02, 2025 at 06:55. 07:15 Acuity: DEANDRE 2 kb4 Triage Assessment: 07:37 General: Appears distressed, uncomfortable, Behavior is anxious. Pain: Complains of kb4 pain in anterior aspect of left upper chest and left arm. Cardiovascular: Reports chest pain, shortness of breath, since 20m ADMIN PROG COORD Chest pain is described as "worst pain of my life", radiates to left. Historical: - Allergies: 07:37 Suprax; kb4 - Immunization history:: Adult Immunizations up to date. - Infectious Disease History:: Denies. - Social history:: Smoking status: Reported history of juuling and/or vaping. - Family history:: not pertinent. Screenin:20 [facility] ED Fall Risk Assessment (Adult) History of falling in the last 3 months, ar8 including since admission No falls in past 3 months (0 pts) Confusion or Disorientation No (0 pts) Intoxicated or Sedated No (0 pts) Impaired Gait No (0 pts) Mobility Assist Device Used No (0 pt) Altered Elimination No (0 pt) Score/Fall Risk Level 0 - 2 = Low Risk Oriented to surroundings, Maintained a safe environment. Abuse screen: Denies threats or abuse. Nutritional screening: No deficits noted. Tuberculosis screening: No symptoms or risk factors identified. Assessment: 07:20 General: Appears distressed, Behavior is crying. Pain: Complains of pain in chest and ar8 anterior aspect of left shoulder Pain currently is 10 out of 10 on a pain scale. Pain began 1 hour ago. Neuro: Level of Consciousness is awake, alert, obeys commands, Oriented to person, place, time, situation, Tutoring Manager are equal bilaterally Moves all extremities. Full function. Cardiovascular: Reports chest pain, Patient's skin is warm and dry. Rhythm is sinus tachycardia Chest pain is located in left. Respiratory: Airway is patent Respiratory effort is labored, Respiratory pattern is hyperventilation. 07:20 GI: No signs and/or symptoms were reported involving the gastrointestinal system. : ar8 No signs and/or symptoms were reported regarding the genitourinary system. 07:30 Reassessment: Delay in Ativan administration- not stocked in med room. Pharmacy ar8 notified. Awaiting medication to administer. 07:50 Reassessment: Patient and/or family updated on plan of care and expected duration. Pain ar8 level reassessed. Patient is alert, oriented x 3, equal unlabored respirations, skin warm/dry/pink. General: Appears in no apparent distress. Behavior is cooperative. Respiratory: Airway is patent Respiratory effort is even, unlabored, Respiratory pattern is regular, symmetrical. 08:10 Cardiovascular: Rhythm is sinus rhythm. ar8 Vital Signs: 07:15 BP 139 / 114; Pulse 105; Resp 26; Temp 98; Pulse Ox 99% on R/A; Pain 10/10; kb4 07:20 Weight 69.85 kg; Height 5 ft. 3 in. ; ar8 07:50 BP 98 / 65; Pulse 77; Resp 19; Pulse Ox 100% on R/A; ar8 08:00 Pain 6/10; ar8 08:46 BP 94 / 63; Pulse 82; Resp 16 S; Pulse Ox 100% on R/A; Pain 4/10; ar8 07:20 Body Mass Index 27.28 (69.85 kg, 160.02 cm) ar8 07:15 Pain Scale: Adult kb4 08:00 Pain Scale: Adult ar8 08:46 Pain Scale: Adult ar8 ED Course: 07:16 Patient arrived in ED. mr 07:17 Aamir Oliver MD is Attending Physician. rosemary 07:20 Bed in low position. Call light in reach. Side rails up X2. Provided Education on: plan ar8 of care. Client placed on continuous cardiac and pulse oximetry monitoring. NIBP monitoring applied. 07:26 Chris Cho, RN is Primary Nurse. ar8 07:35 No provider procedures requiring assistance completed. Inserted saline lock: 20 gauge ar8 in right antecubital area, using aseptic technique. Blood collected. Flushed with 10 mL NS. 07:35 Patient maintains SpO2 saturation greater than 95% on room air. ar8 07:37 Triage completed. kb4 07:44 Patient moved to radiology via wheelchair. ar8 07:46 Patient moved back from radiology. ar8 07:50 Chest Pa And Lat (2 Views) XRAY In Process Unspecified. EDMS 08:19 Nicho Kam MD is Referral Physician. rosemary 08:57 IV discontinued, intact, bleeding controlled, No redness/swelling at site. Pressure ar8 dressing applied. Administered Medications: 07:35 Drug: NS 0.9% IV 1000 ml IV at 1 bolus Per protocol; to be given as a bolus over 60 kb4 minutes Route: IV; Rate: 1 bolus; Site: right antecubital; 08:45 Follow up: Response: No adverse reaction; IV Status: Completed infusion; IV Intake: ar8 1000ml 07:35 Drug: Ketorolac IVP 15 mg IVP once Route: IVP; Site: right antecubital; kb4 08:00 Follow up: Pain 6/10 Adult; Response: No adverse reaction; Pain is decreased ar8 07:35 Drug: Aspirin PO Chewable Tablet 81 mg PO once Route: PO; kb4 08:00 Follow up: Response: No adverse reaction ar8 08:30 Drug: Ativan IVP 2 mg IVP once Route: IVP; Site: right antecubital; ar8 08:55 Follow up: Response: No adverse reaction; Anxiety decreased ar8 Medication: 07:20 VIS not applicable for this client. ar8 Intake: 08:45 IV: 1000ml; Total: 1000ml. ar8 Outcome: 08:19 Discharge ordered by . rosemary 08:57 Discharged to home via wheelchair, ar8 08:57 Condition: stable 08:57 Discharge instructions given to patient, family, Instructed on discharge instructions, follow up and referral plans. medication usage, Demonstrated understanding of instructions, follow-up care, medications, Prescriptions given X 2, 08:59 Patient left the ED. ar8 Signatures: Dispatcher [employer] EDAamir Love MD MD cha Rivera, Mary, Jacek Read mr Mariposa Gutierrez, RN RN kb4 Chris Cho RN RN ar8 Corrections: (The following items were deleted from the chart) 07:38 07:37 PSHx: I\\T\\D; kb4 kb4
--- NOTE | 2025-04-02 08:20 | EDPHYS ---
Physician Documentation [facility] Name: Tara Anderson Age: 29 yrs Sex: Female : 1995 Arrival Date: 04/02/2025 Time: 07:12 Bed 7 Private MD: ED Physician Aamir Oliver HPI: 04/02 08:07 This 29 yrs old Female presents to ER via Ambulatory with complaints of Chest rosemary Pain. 08:07 The patient or guardian reports chest pain that is located primarily in the substernal rosemary area, anterior chest wall, left. The pain radiates to Associated signs and symptoms: Pertinent positives: anxiety. The chest pain is described as sharp. Duration: The patient or guardian reports a single episode, that is still ongoing. Modifying factors: The symptoms are alleviated by remaining still, the symptoms are aggravated by emotionally stressful situations. Severity of pain: At its worst the pain was moderate in the emergency department the pain is unchanged. The patient has not experienced similar symptoms in the past. Historical: - Allergies: 07:37 Suprax; kb4 - Immunization history:: Adult Immunizations up to date. - Infectious Disease History:: Denies. - Social history:: Smoking status: Reported history of juuling and/or vaping. - Family history:: not pertinent. ROS: 08:07 Constitutional: Negative for fever, chills, and weight loss, Eyes: Negative for injury, rosemary pain, redness, and discharge, ENT: Negative for injury, pain, and discharge, Neck: Negative for injury, pain, and swelling, Respiratory: Negative for shortness of breath, cough, wheezing, and pleuritic chest pain, Abdomen/GI: Negative for abdominal pain, nausea, vomiting, diarrhea, and constipation, Back: Negative for injury and pain, : Negative for injury, bleeding, discharge, and swelling, MS/Extremity: Negative for injury and deformity, Skin: Negative for injury, rash, and discoloration, Neuro: Negative for headache, weakness, numbness, tingling, and seizure, Allergy/Immunology: Negative for hives, rash, and allergies, Endocrine: Negative for neck swelling, polydipsia, polyuria, polyphagia, and marked weight changes, Hematologic/Lymphatic: Negative for swollen nodes, abnormal bleeding, and unusual bruising, 08:07 Cardiovascular: Positive for chest pain, of the anterior aspect of left upper chest and left breast, 08:07 Respiratory: Negative for cough, 08:07 Psych: Positive for anxiety, Exam: 08:07 Constitutional: This is a well developed, well nourished patient who is awake, alert, rosemary and in no acute distress. Head/Face: Normocephalic, atraumatic. Eyes: Pupils equal round and reactive to light, extra-ocular motions intact. Lids and lashes normal. Conjunctiva and sclera are non-icteric and not injected. Cornea within normal limits. Periorbital areas with no swelling, redness, or edema. ENT: Nares patent. No nasal discharge, no septal abnormalities noted. Tympanic membranes are normal and external auditory canals are clear. Oropharynx with no redness, swelling, or masses, exudates, or evidence of obstruction, uvula midline. Mucous membranes moist. Neck: Trachea midline, no thyromegaly or masses palpated, and no cervical lymphadenopathy. Supple, full range of motion without nuchal rigidity, or vertebral point tenderness. No Meningismus. Chest/axilla: Normal chest wall appearance and motion. Nontender with no deformity. No lesions are appreciated. Cardiovascular: Regular rate and rhythm with a normal S1 and S2. No gallops, murmurs, or rubs. Normal PMI, no JVD. No pulse deficits. Respiratory: Lungs have equal breath sounds bilaterally, clear to auscultation and percussion. No rales, rhonchi or wheezes noted. No increased work of breathing, no retractions or nasal flaring. Abdomen/GI: Soft, non-tender, with normal bowel sounds. No distension or tympany. No guarding or rebound. No evidence of tenderness throughout. Back: No spinal tenderness. No costovertebral tenderness. Full range of motion. Skin: Warm, dry with normal turgor. Normal color with no rashes, no lesions, and no evidence of cellulitis. MS/ Extremity: Pulses equal, no cyanosis. Neurovascular intact. Full, normal range of motion., bilateral aka Neuro: Awake and alert, GCS 15, oriented to person, place, time, and situation. Cranial nerves II-XII grossly intact. Motor strength 5/5 in all extremities. Sensory grossly intact. Cerebellar exam normal. Normal gait. Psych: Awake, alert, with orientation to person, place and time. Behavior, mood, and affect are within normal limits. 08:07 ECG was reviewed by the Attending Physician. 08:19 Abdomen/GI: Inspection: abdomen appears normal, Bowel sounds: normal, Palpation: [facility] abdomen is soft and non-tender, Liver: no appreciated palpable abnormalities, Hernia: not appreciated, 08:27 ECG was reviewed by the Attending Physician. [facility] Vital Signs: 07:15 BP 139 / 114; Pulse 105; Resp 26; Temp 98; Pulse Ox 99% on R/A; Pain 10/10; kb4 07:20 Weight 69.85 kg; Height 5 ft. 3 in. ; ar8 07:50 BP 98 / 65; Pulse 77; Resp 19; Pulse Ox 100% on R/A; ar8 08:00 Pain 6/10; ar8 08:46 BP 94 / 63; Pulse 82; Resp 16 S; Pulse Ox 100% on R/A; Pain 4/10; ar8 07:20 Body Mass Index 27.28 (69.85 kg, 160.02 cm) ar8 07:15 Pain Scale: Adult kb4 08:00 Pain Scale: Adult ar8 08:46 Pain Scale: Adult ar8 MDM: 07:17 Medical Screening Exam initiated rosemary 08:12 HEART Score: History: Slightly Suspicious (0), ECG: Normal (0), Age: < or = 45 years [facility] (0), Risk Factors: No Risk Factors Known (0), Troponin: < or = 1 x Normal Limit (0). JANAY Risk Score: TOTAL SCORE = 0. Data reviewed: vital signs, nurses notes, lab test result(s), EKG, radiologic studies, plain films. Consideration of Admission/Observation Escalation of care including admission/observation considered. I considered the following discharge prescriptions or medication management in the emergency department Medications were administered in the Emergency Department. See MAR. Independent interpretation of the following test(s) in the Emergency Department EKG: See my EKG interpretation above. 04/02 07:22 Order name: CBC with Diff; Complete Time: 08:07 [facility] 04/02 07:22 Order name: CMP; Complete Time: 08:19 [facility] 04/02 07:22 Order name: Troponin High Sensitivity; Complete Time: 08:19 [facility] 04/02 07:22 Order name: Test, Serum; Complete Time: 08: [facility] 04/02 07:22 Order name: Chest Pa And Lat (2 Views) XRAY; Complete Time: 08:07 rosemary 04/02 08:00 Order name: EKG Electrocardiogram; Complete Time: 08: EDMS EC:27 Rate is 105 beats/min. Rhythm is regular. QRS [place] is Normal. MA interval is normal. rosemary QRS interval is normal. QT interval is normal. No Q waves. T waves are Normal. No ST changes noted. Clinical impression: Sinus tachycardia. Interpreted by me. Reviewed by me. Administered Medications: 07:35 Drug: NS 0.9% IV 1000 ml IV at 1 bolus Per protocol; to be given as a bolus over 60 kb4 minutes Route: IV; Rate: 1 bolus; Site: right antecubital; 08:45 Follow up: Response: No adverse reaction; IV Status: Completed infusion; IV Intake: ar8 1000ml 07:35 Drug: Ketorolac IVP 15 mg IVP once Route: IVP; Site: right antecubital; kb4 08:00 Follow up: Pain 6/10 Adult; Response: No adverse reaction; Pain is decreased ar8 07:35 Drug: Aspirin PO Chewable Tablet 81 mg PO once Route: PO; kb4 08:00 Follow up: Response: No adverse reaction ar8 08:30 Drug: Ativan IVP 2 mg IVP once Route: IVP; Site: right antecubital; ar8 08:55 Follow up: Response: No adverse reaction; Anxiety decreased ar8 Disposition Summary: 04/02/25 08:19 Discharge Ordered Notes: Location: Home rosemary Problem: new rosemary Symptoms: have improved rosemary Condition: Stable rosemary Diagnosis - Chest pain, unspecified rosemary - Adjustment disorder with anxiety rosemary Followup: rosemary - With: Private Physician - When: 2 - 3 days - Reason: Recheck today's complaints, Continuance of care, Re-evaluation by your physician Followup: rosemary - With: Nicho Kam MD - When: 2 - 3 days - Reason: Recheck today's complaints, Re-evaluation by your physician Discharge Instructions: - Discharge Summary Sheet rosemary - Adjustment Disorder, Adult rosemary - Nonspecific Chest Pain, Adult rosemary - Aspirin and Your Heart rosemary Forms: - Medication Reconciliation Form rosemary - Antibiotic Education rosemary - Prescription Opioid Use rosemary - Patient Portal Instructions rosemary - Leadership Thank You Letter [facility] Prescriptions: - Ibuprofen 600 mg Oral tablet - take 1 tablet ORAL route every 6 hours As needed take with food; 20 tablet; rosemary Refills: 0, Product Selection Permitted - Xanax 0.5 mg Oral Tablet - take 1 tablet ORAL route every 8 hours As needed; 20 tablet; Refills: 0, rosemary Product Selection Permitted Signatures: Dispatcher [employer] Aamir Ronquillo MD MD cha Bowen, Kayla, RN RN kb4 Chris Cho RN RN ar8 Corrections: (The following items were deleted from the chart) 07:38 07:37 PSHx: I\T\D; kb4 kb4 08:28 08:07 Rate is 70 beats/min. Rhythm is regular. QRS [place] is Normal. QRS interval is rosemary normal. QT interval is normal. No Q waves. T waves are Normal. No ST changes noted. Clinical impression: NSR w/ Non-specific ST/T Changes and No evidence of ischemia. Interpreted by me. Reviewed by me. rosemary
[2025-04-02] MEDS ORDERED: LORazepam 2 MG/ML VIAL ONE (08:24)
[2025-04-02 09:16] VITALS: TEMP 98
[2025-04-02 09:21] VITALS: O2SAT 100
[2025-04-02 09:33] VITALS: BP 94/63
== END 2025-04-02 08:59 | disposition home or self-care (01) ==
LOC: ER 07:12
DX: F43.22 Adjustment disorder with anxiety (principal)
CPT/HCPCS: 36415; 71046; 80053; 84484; 84703; 85025; 93005; 96361; 96374; 96375; 99285; J1885; J7030